=== PATIENT | male | born 1960 | race Caucasian/White ===

== ENCOUNTER 2023-08-11 16:57 | Outpatient (AMB) | payer OTHER, SELFPAY ==
[2023-08-11 17:00] VITALS: BP 136/80; PULSE 89; RESP 14; TEMP 36.6; O2SAT 97; BMI 34.0
--- NOTE | 2023-08-11 17:00 | A.OFFPC_ITS ---
Vital Signs 08/11/23 17:00 08/11/23 17:24 Height 6 ft Weight 250 lb 6 oz BMI 34.0 BP 136/80 110/60 Blood Pressure Location Rt brachial Rt brachial Position Sitting Sitting Respiration 14 Pulse 89 Pulse Source Pulse Oximeter Temp 97.9 F Temp Source Temporal Artery Scan Pulse Oximetry (%) 97 Oxygen Delivery Method Room Air Intake Visit Reasons: est care [facility] Justice Required: No Accompanied by: Self / Same As Patient Allergies cat dander Allergy (Intermediate, Verified 08/11/23 17:14) Itchy Eyes Medication List - Last Reconciled 08/11/23 by Linda Howe CNP albuterol sulfate 90 mcg/actuation 1 - 2 puffs inhalation Q4-6H PRN amlodipine 10 mg PO DAILY atorvastatin 80 mg PO DAILY bupropion HCl XL 150 mg PO QAM buspirone 15 mg PO BID gabapentin 600 mg PO TID lisinopril 40 mg PO DAILY meloxicam 7.5 mg PO DAILY metformin 1,000 mg PO BID metoprolol succinate ER 100 mg PO DAILY trazodone 50 mg PO BEDTIME Tobacco use date assessed: 08/11/23 Fall risk assessment: 1 Fall in past year Last assessed Fall Risk: 08/11/23 Dental Screening Dental Screen Date: 08/11/23 Did you have a dental visit in the last 12 months?: Yes Did you have a dental problem in the last 6 months where you did not have access to dental care?: No Was dental information given to patient?: Patient has dentist HPI HPI Comments History of Present Illness Details New patient Prior PCP:?[facility], Dr. Parkinson Last labs/office visit: 03/2023 Last CPE: Several years ago Acute issue(s): Hypertension -He is on amlodipine 10 mg daily, lisino pril 40 mg daily, and metoprolol succinate ER 100 mg daily Hyperlipidemia -He is on atorvastatin 80 mg daily Type 2 diabetes -He is on metformin 1000 mg twice daily COPD -He is on albuterol inhaler 1-2 puffs Q 4-6 H p.r.n. Anxiety/Depresion -He is on bupropion HDL XL 150 mg daily, buspirone 50 mg twice daily, and trazodone 50 mg daily at bedtime He reports controlled anxiety and depression symptoms on current treatment regimen. He is not currently followed and never been followed by a therapist or psychiatrist. No h/o psychiatric hospitalizations PMHx: HTN, DM2, HLD, COPD, anxiety, depression, CA, AAA (diagnosed sometime this year), and cervical stenosis SurgHx: Surgical repair of the colon s/p diverticulitis about 20 years ago FHx: Non SocHx: Smokes 10 cigarettes daily; has been smoking x 50 years. He does not drink alcohol. No recreational drugs He notes that he is followed by Precious Jordan, [facility] cardiology He states that he was followed by [facility] neuro spine for cervical stenosis. Surgery was recommended, however, he does not want surgery His notes that his last eye exam was about 2 years ago. He requests opthalmology referral He states that his last A1c was checked in March 2023 [facility] Medical History (Updated 08/11/23 @ 17:48 by Linda Howe [facility]) Diverticulitis of ascending colon Shoulder pain, left HTN (hypertension) Heart attack Diabetes Surgical History (Updated 08/11/23 @ 17:12 by Erendira Marx [facility]) No pertinent past surgical history Social History (Updated 05/21/21 @ 12:48 by Laura Garibay [facility]) Household Members: Spouse Housing: Apartment Alcohol intake: current Alcohol intake frequency: holidays/special occasions only Patient Tobacco Use Status: Current everyday Tobacco user Cigarette Packs Per Day: 0.5 Cigarettes Per Day: 10 Years Smoked: 50 e-Cigarette/Vaping Use: Never Used service: No Current occupational status: retired Cognitive needs: No Hearing needs: No Vision needs: No Questionnaire PHQ-9 Over the last 2 weeks, how often have you been bothered by any of the following problems? 1. Little interest or pleasure in doing things: not at all 2. Feeling down, depressed, or hopeless: not at all 3. Trouble falling or staying asleep, or sleeping too much: nearly every day 4. Feeling tired or having little energy: nearly every day 5. Poor appetite or overeating: not at all 6. Feeling bad about yourself - or that you are a failure or have let yourself or your family down: not at all 7. Trouble concentrating on things, such as reading the newspaper or watching television: not at all 8. Moving or speaking so slowly that other people could have noticed. Or the opposite - being so fidgety or restless that you have been moving around a lot more than usual: not at all 9. Thoughts that you would be better off or of hurting yourself in some way: not at all Total score: 6 Depression Screening Interpretation: Positive Depression Screening Follow-up: Existing condition and In treatment Depression Screening Done: Yes 93492 - PHQ-9 Billing: Yes Source: Developed by Drs. Rickey Gordillo, Claudia Lund, Mike Chambers and colleagues, with an educational diane from [employer] Thrive Questionnaire Date Thrive assessed: 08/11/23 I am a: Patient What is your living situation today?: I have a steady place to live Within the past 12 months, did the food you bought not last and you didn't have the money to get more?: Never true Within the past 12 months, did you worry whether your food would run out before you got money to buy more?: Never true Do you have trouble paying for medicines?: No Do you have trouble getting transportation to medical appointments?: No Do you have trouble paying your heating and electricity bill?: No Do you have trouble taking care of your child, family member or friend?: No Do you have trouble with day-to-day activities such as bathing, preparing meals, shopping, managing finances, etc.?: No Are you currently unemployed and looking for a job?: No Are you interested in more education?: No Please select the resources that you would like help with: None Currently or been in a relationship where the following occur: no concerns reported THRIVE Score: 0 AUDIT C Alcohol Use Questionnaire (AUDIT-C) 1. How often do you have a drink containing alcohol?: Never 3. How often do you have six or more drinks on one occasion?: Never Total Score: 0 KASSI-7 AMB Questionnaire KASSI-7 Date KASSI - 7 assessed: 08/11/23 Feeling nervous, anxious, or on edge: 3 = Nearly every day Not being able to stop or control worryin = Not at all Worrying too much about different things: 0 = Not at all Trouble relaxin = Not at all Being so restless that it is hard to sit still: 0 = Not at all Becoming easily annoyed or irritable: 0 = Not at all Feeling afraid as if something awful might happen: 0 = Not at all Total KASSI-7 score (0-4 normal; 5-9 mild; 10-14 moderate; 15-21 severe): 3 Source: Developed by Drs. Rickey Gordillo, Claudia Lund, Mike Chambers and colleagues, with an educational diane from [employer] KASSI-7 Assessment Billing KASSI-7 Assessment Tool: KASSI-7 Assessment 71157 Review of Systems Const Details: Const Denies chills, Denies fatigue, Denies fever(s), Denies headache(s) and Denies weakness ENT Denies dizziness and Denies headache(s) Card Denies chest pain, Denies lightheadedness, Denies dyspnea and Denies other (Palpitations) Resp Denies cough, Denies dyspnea, Denies wheezing and Denies other ( shortness of breath) GI Denies abdominal pain, Denies melena, Denies hematochezia, Denies change in bowel habits, Denies dyspepsia and Denies nausea Denies hematuria and Denies dysuria Musc Denies abnormal gait, Denies myalgias, Denies arthralgias, Denies numbness and Denies tingling Skin/Breast Denies rash, Denies unusual bruising and Denies wounds Neuro Denies abnormal gait, Denies dizziness, Denies headache(s), Denies memory loss, Denies numbness, Denies Sensory deficit (Neuro), Denies tingling and Denies weakness Psych Denies anxiety, Denies depression, Denies memory loss Endo Denies cold intolerance, Denies fatigue, Denies heat intolerance, Denies polydipsia and Denies polyuria Aller/Immun Denies wheezing Physical exam (Primary Care) Vital Signs: Last Vital Signs Temp 97.9 F 08/11/23 17:00 Pulse 89 08/11/23 17:00 Resp 14 08/11/23 17:00 BP 136/80 08/11/23 17:00 Pulse Ox 97 08/11/23 17:00 Oxygen Delivery Method Room Air 08/11/23 17:00 BMI result Body Mass Index 34.0 Tobacco/Smoking Status: Tobacco use Status Patient Tobacco Use Status Current everyday Tobacco 05/21/21 12:48 Depression Screening Interpretation: Positive Depression Screening Follow-up: Existing condition and In treatment Currently or been in a relationship where the following occur: no concerns reported Const Other: General: no acute distress and well developed Nutritional Appearance: well nourished Orientation/consciousness: patient oriented x3 [facility] Head: Yes normocephalic and Yes atraumatic Eyes General: appearance normal, both eyes and all related structures Pupils: Equal, round and reactive pupils present EOM: EOMs intact bilaterally Resp Effort & Inspection: normal respiratory effort Auscultation: clear to auscultation bilaterally Cardio Rate: regular rate Rhythm: regular rhythm Heart sounds: S1 normal heart sound present, S2 normal heart sound present, no gallops, no murmurs and no rubs GI Palpation (GI): No Abdominal aortic bruit present, Soft to palpation, nontender, No hepatosplenomegaly present and No Rebound tenderness present Auscultation: normal bowel sounds General: Yes no CVA tenderness Back/Spine/Pelvis Back: no CVA tenderness Cervical Spine: cervical ROM normal and No Cervical spine tenderness Thoracic/Lumbar Spine: thoraco-lumbar ROM normal, No pain with thoraco-lumbar ROM, No thoracic spinal tenderness and No lumbar spinal tenderness Extrem General: Yes normal to inspection, No edema and No calf tenderness Skin General: warm and dry. Normal skin color. Normal skin turgor Lesions: no lesions Rashes: no rashes Trauma: no lacerations or abrasions Wounds: no wounds Nails: normal Neuro General: patient oriented x3, gait normal and no focal neuro deficit Cranial nerves: Yes Equal, round and reactive pupils present Cognition (Neuro): normal cognition Gait exam (Neuro): Normal gait present Sensory Exam: No Sensory deficit (Neuro) Psych Appearance: grossly normal Affect: normal affect Attitude: cooperative Thought process: Normal thought process present Results AMB Hemoglobin A1c AMB Hemoglobin A1c 7.0 % Last Edit by ZEV Tamez on 08/11/23 17:2 2 Assessment and Plan Assessment & Plan (1) HTN (hypertension): Code(s): I10 - Essential (primary) hypertension Plan: Resting blood pressure is 110/60, within goal of less than 130/80 Continue current treatment regimen Low-sodium diet and routine exercise encouraged Follow-up in 1 month for hypertension, extended physical exam, labs review Return sooner with symptoms or concerns Verbalized understanding and agreed with treatment plan (2) Type 2 diabetes mellitus: Code(s): E11.9 - Type 2 diabetes mellitus without complications Plan: A1c today is 7.0%, slightly above goal of less than 7.0% Continue current treatment regimen ADA diet and routine exercise encouraged. Advised to limit carbs such as rice, bread, pasta, and rice Referred to Ophthalmology for diabetic eye exam Will recheck A1c in 3 months Verbalized understanding and agreed with treatment plan (3) Anxiety and depression: Code(s): F41.9 - Anxiety disorder, unspecified; F32.A - Depression, unspecified Plan: Controlled Continue to take buspirone and bupropion as prescribed Routine exercise encouraged Follow-up with worsening or new symptoms Verbalized understanding and agreed with treatment plan (4) Laboratory tests ordered as part of a complete physical exam (CPE): Code(s): Z00.00 - Encounter for general adult medical examination without abnormal findings Plan: Fasting labs ordered as in preparation of a complete physical exam. Advised to fast for at least 10 hours before getting labs drawn. May drink water Verbalized understanding and agreed with treatment plan. Orders: Orders AMB Hemoglobin A1c Today E11.9 - Type 2 diabetes mellitus without complications Comprehensive [place]. Panel Fast Today Z00.00 - Encounter for general adult medical examination without abnormal findings Lipid Panel Today Z00.00 - Encounter for general adult medical examination without abnormal findings UA CC w/rflx Micro + Cult Today Z00.00 - Encounter for general adult medical examination without abnormal findings PSA, Ultra Sensitive Today Z00.00 - Encounter for general adult medical examination without abnormal findings Microalbumin, Random (w Creat) Today E11.9 - Type 2 diabetes mellitus without complications Complete Blood Count Auto Diff Today Z00.00 - Encounter for general adult medical examination without abnormal findings TSH reflex Free T4 Today Z00.00 - Encounter for general adult medical examination without abnormal findings Referrals Ophthalmology Referral E11.9 - Type 2 diabetes mellitus without complications Coding Level of Care Code Est Pt Level 4 (99933) Complex EM visit Add On G2211 Diagnoses HTN (hypertension) I10 Type 2 diabetes mellitus E11.9 Anxiety and depression F41.9; F32.A Laboratory tests ordered as part of a complete physical exam (CPE) Z00.00 Additional Codes KASSI-7 Assessment Billing - KASSI-7 Assessment Tool: KASSI-7 Assessment [id number] ([id number])
[2023-08-11 17:24] VITALS: BP 110/60
== END 2023-08-11 17:51 | disposition home or self-care (01) ==
PROVIDERS: PCP Nurse Practitioner Family; Visit Provider Nurse Practitioner Family
DX: I10 Essential (primary) hypertension (principal); E11.9 Type 2 diabetes mellitus without complications; F41.9 Anxiety disorder, unspecified; F32.A Depression, unspecified
CPT/HCPCS: 83036; 99214; G2211

== ENCOUNTER 2023-08-19 10:44 | Outpatient (REF) | payer OTHER, SELFPAY ==
[2023-08-19 14:34] LABS: MANUAL DIFF FLAG NO
[2023-08-19 14:41] LABS: Appearance Urine Clear; Color Urine Yellow; Glucose Urine UA Negative (Negative); Leukocyte Esterase Urine Negative (Negative); Nitrite Urine Negative (Negative); PH 6.5 (5.0-9.0); UMIC TRIGGER UACC YES; Urine Blood Negative (Negative); Urine Ketones Negative (Negative); Urine Protein 30 (1+) mg/dL (Neg-Trace)
[2023-08-19 14:43] LABS: Basophils Percent Auto 0.2 % (0-2); Eosinophils Absolute Auto 0.4 X10*3/uL (0.0-0.4); Eosinophils Percent Auto 3.1 % (0-4); Hematocrit 49.4 % (42.0-52.0); Hemoglobin 16.6 g/dl (14.0-18.0); Imm Gran Abs Auto 0.05 X10*3/uL (0.00-0.03); Imm Gran Pct Auto 0.4 % (0.0-0.4); Lymphocytes Absolute Auto 2.2 X10*3/uL (1.2-4.9); Lymphocytes Percent Auto 17.3 % (20-40); Mean Corpuscular HGB Conc 33.6 g/dl (31.0-36.0); Mean Corpuscular Hemoglobin 30.5 pg (27.0-33.0); Mean Corpuscular Volume 90.6 fL (80.0-98.0); Mean Platelet Volume 9.4 fL (9.4-12.4); Monocytes Absolute Auto 0.7 X10*3/uL (0.1-1.2); Monocytes Percent Auto 5.6 % (2-11); Neutrophils Absolute Auto 9.3 x10*3/uL (2.0-8.3); Neutrophils Percent Auto 73.4 % (45-73); Platelet Count 271 X10*3/uL (160-400); Red Blood Count 5.45 X10*6/uL (4.60-5.80); Red Cell Distribution Width 12.9 % (11.0-16.0); White Blood Count 12.7 X10*3/uL (4.8-10.8)
[2023-08-19 14:46] LABS: Creatinine Urine 122.55 mg/dL
[2023-08-19 14:50] LABS: Bacteria Urine None Seen (None Seen); Hyaline Casts Urine 0-2 /LPF (0-2); RBC Urine 0-2 /HPF (0-2); Squamous Epithelial Cell Urine 0-2 /HPF (0-2); WBC Urine 0-5 /HPF (0-5)
[2023-08-19 15:24] LABS: Alanine Aminotransferase 22 U/L (0-40); Albumin Level 4.5 g/dL (3.5-5.0); Alkaline Phosphatase 82 U/L (39-117); Anion Gap 16 (12-20); Aspartate Amino Transferase 19 U/L (5-37); Bilirubin Total 0.9 mg/dL (0.0-1.0); Blood Urea Nitrogen 16 mg/dL (9-16); Carbon Dioxide 28 mmol/L (22-29); Chloride 104 mmol/L (96-108); Cholesterol 114 mg/dL (<200); Estimated Glomerular Filt Rate > 60; Glucose Fasting 80 mg/dL (60-99); HDL Cholesterol 33 mg/dL (>40); LDL Cholesterol Calculated 55 mg/dL (<100); Potassium 3.6 mmol/L (3.3-5.1); Sodium 144 mmol/L (135-145); Total Protein 7.4 g/dL (6.5-8.0); Triglycerides 133 mg/dL (<150)
[2023-08-19 15:52] LABS: TSH reflex Free T4 0.98 uIU/mL (0.32-4.0)
[2023-08-24 12:13] LABS: PSA, Ultra Sensitive 3.47 ng/mL
== END 2023-08-19 10:45 | disposition home or self-care (01) ==
LOC: HO.WFDLDS 10:44
PROVIDERS: Visit Provider Nurse Practitioner Family
DX: Z00.00 Encounter for general adult medical examination without abnormal findings (principal); Z12.5 Encounter for screening for malignant neoplasm of prostate; E11.9 Type 2 diabetes mellitus without complications
CPT/HCPCS: 36415; 80053; 80061; 81001; 82043; 82570; 84153; 84443; 85025

== ENCOUNTER 2023-09-11 10:36 | Outpatient (AMB) | payer OTHER, SELFPAY ==
--- NOTE | 2023-09-11 10:40 | MHC.PC.OV ---
Vital Signs 09/11/23 10:42 09/11/23 11:04 Height 6 ft Weight 250 lb BMI 33.9 BP 146/84 H 120/80 Blood Pressure Location Rt brachial Lt brachial Position Sitting Sitting Respiration 14 Pulse 69 Pulse Source Pulse Oximeter Temp 97.1 F Temp Source Temporal Artery Scan Pulse Oximetry (%) 98 Oxygen Delivery Method Room Air Intake Visit Reasons: CPE w F/U of labs [employer] Helper Required: No Accompanied by: Self / Same As Patient Allergies cat dander Allergy (Intermediate, Verified 09/11/23 10:58) Itchy Eyes Medication List - Last Reconciled 09/11/23 by Linda Howe CNP albuterol sulfate 90 mcg/actuation 1 - 2 puffs inhalation Q4-6H PRN amlodipine 10 mg PO DAILY atorvastatin 80 mg PO DAILY bupropion HCl XL 150 mg PO QAM buspirone 15 mg PO BID gabapentin 600 mg PO TID lisinopril 40 mg PO DAILY meloxicam 7.5 mg PO DAILY metformin 1,000 mg PO BID metoprolol succinate ER 100 mg PO DAILY trazodone 50 mg PO BEDTIME Tobacco use date assessed: 08/11/23 Fall risk assessment: 2 + Falls in past year Last assessed Fall Risk: 09/11/23 Dental Screening Dental Screen Date: 09/11/23 Did you have a dental visit in the last 12 months?: No Did you have a dental problem in the last 6 months where you did not have access to dental care?: No Was dental information given to patient?: Patient has dentist HPI HPI Comments History of Present Illness Details 63-year-old male presents for an extended physical exam He has history of hypertension, hyperlipidemia, type 2 diabetes, COPD, NE, anxiety, and depression He admits to taking his medications as prescribed without adverse reactions He notes that he generally eats healthy and sleep well. He has been exercising with his bicycle He denies acute symptoms at this time He was followed by Dr. Lang, [facility] yearly, since he has an NE in his 50s. He is not followed anymore since he is no longer with the practice due to discontinued health plan coverage Last colonoscopy was 7-8 years ago: benign polyps and diverticulitis, Had colectomy Last eye exam was on 09/02/2023: No retinopathy He has not seen a dentist in the past 1 year He smokes 8 cigarettes daily. He has been smoking for at least 50 years. Unsure of LDCT. He has been trying to quit smoking by not smoking a whole cigarette. He is willing to try Chantix; he smoked while on nicotine pach or gum reports multiple falls due to intermittent numbness of his entire RLE for the past 8 months. He was followed by multiple specialists at [facility] and received a cortisone injection without improvement. Physical therapy did not help. He was informed he has a pinched nerve to his LUE, no sciatica. He is willing to be referred to [facility] ortho He has never been vaccinated for shingles or pneumonia He states that he does not get the flu vaccine [facility] Medical History Diverticulitis of ascending colon Shoulder pain, left HTN (hypertension) Heart attack Diabetes Surgical History No pertinent past surgical history Social History Household Members: Spouse Housing: Apartment Alcohol intake: current Alcohol intake frequency: holidays/special occasions only Patient Tobacco Use Status: Current everyday Tobacco user Tobacco use type: Cigarette Cigarette Packs Per Day: 0.5 Cigarettes Per Day: 8 Years Smoked: 50 e-Cigarette/Vaping Use: Never Used service: No Current occupational status: retired Cognitive needs: No Hearing needs: No Vision needs: No Questionnaire PHQ-9 Over the last 2 weeks, how often have you been bothered by any of the following problems? 1. Little interest or pleasure in doing things: not at all 2. Feeling down, depressed, or hopeless: not at all 3. Trouble falling or staying asleep, or sleeping too much: more than half the days 4. Feeling tired or having little energy: not at all 5. Poor appetite or overeating: not at all 6. Feeling bad about yourself - or that you are a failure or have let yourself or your family down: not at all 7. Trouble concentrating on things, such as reading the newspaper or watching television: not at all 8. Moving or speaking so slowly that other people could have noticed. Or the opposite - being so fidgety or restless that you have been moving around a lot more than usual: not at all 9. Thoughts that you would be better off or of hurting yourself in some way: not at all Total score: 2 Depression Screening Interpretation: Negative Depression Screening Done: Yes 32851 - PHQ-9 Billing: Yes Source: Developed by Drs. Rickey Gordillo, Claudia Lund, Mike Chambers and colleagues, with an educational diane from [employer]. Thrive Questionnaire Date Thrive assessed: 09/11/23 I am a: Patient What is your living situation today?: I have a steady place to live Within the past 12 months, did the food you bought not last and you didn't have the money to get more?: Never true Within the past 12 months, did you worry whether your food would run out before you got money to buy more?: Never true Do you have trouble paying for medicines?: No Do you have trouble getting transportation to medical appointments?: No Do you have trouble paying your heating and electricity bill?: No Do you have trouble taking care of your child, family member or friend?: No Do you have trouble with day-to-day activities such as bathing, preparing meals, shopping, managing finances, etc.?: No Are you currently unemployed and looking for a job?: No Are you interested in more education?: No Please select the resources that you would like help with: None Currently or been in a relationship where the following occur: no concerns reported THRIVE Score: 0 AUDIT C Alcohol Use Questionnaire (AUDIT-C) 1. How often do you have a drink containing alcohol?: Never 3. How often do you have six or more drinks on one occasion?: Never Total Score: 0 KASSI-7 AMB Questionnaire KASSI-7 Date KASSI - 7 assessed: 09/11/23 Feeling nervous, anxious, or on edge: 1 = Several days Not being able to stop or control worryin = Not at all Worrying too much about different things: 0 = Not at all Trouble relaxin = Several days Being so restless that it is hard to sit still: 0 = Not at all Becoming easily annoyed or irritable: 0 = Not at all Feeling afraid as if something awful might happen: 0 = Not at all Total KASSI-7 score (0-4 normal; 5-9 mild; 10-14 moderate; 15-21 severe): 2 Source: Developed by Drs. Rickey Gordillo, Claudia Lund, Mike Chambers and colleagues, with an educational diane from [employer]. KASSI-7 Assessment Billing KASSI-7 Assessment Tool: KASSI-7 Assessment 34865 Review of Systems Const Details: Denies chills, Denies fatigue, Denies fever(s), Denies headache(s) and Denies weakness HEENT Denies change in vision, Denies dizziness, Denies headache(s), Denies hearing loss, Denies nasal congestion, Denies sinus pain, Denies sinus pressure and Denies sore throat Card Denies chest pain, Denies lightheadedness, Denies dyspnea and Denies other (palpitations) Resp Denies cough, Denies dyspnea and Denies wheezing GI Denies abdominal pain, Denies melena, Denies hematochezia, Denies change in bowel habits, Denies dyspepsia and Denies nausea Denies hematuria and Denies dysuria Musc Denies abnormal gait, Denies myalgias, Denies arthralgias, Denies numbness and Denies tingling Skin/Breast Denies rash, Denies unusual bruising and Denies wounds Neuro Denies abnormal gait, Denies dizziness, Denies headache(s), Denies memory loss, Denies numbness, Denies Sensory deficit (Neuro), Denies tingling and Denies weakness Psych Denies anxiety, Denies depression and Denies memory loss Endo Denies cold intolerance, Denies fatigue, Denies heat intolerance, Denies polydipsia and Denies polyuria Anthony/Lymph Denies easy bleeding and Denies easy bruising Aller/Immun Denies wheezing Physical exam (Primary Care) Vital Signs: Last Vital Signs Temp 97.1 F 09/11/23 10:42 Pulse 69 09/11/23 10:42 Resp 14 09/11/23 10:42 BP 146/84 H 09/11/23 10:42 Pulse Ox 98 09/11/23 10:42 Oxygen Delivery Method Room Air 09/11/23 10:42 BMI result Body Mass Index 33.9 Tobacco/Smoking Status: Tobacco use Status Tobacco use date assessed 08/11/23 09/11/23 10:41 Patient Tobacco Use Status Current everyday Tobacco 09/11/23 10:41 Tobacco use type Cigarette 09/11/23 10:48 e-Cigarette/Vaping Use Never Used 09/11/23 10:41 PHQ-9: PHQ-9 Score PHQ-9: Total score 2 09/11/23 10:48 Depression Screening Interpretation: Negative Thrive Assessment: Date of Thrive Assessment Date Thrive assessed 09/11/23 09/11/23 10:48 Currently or been in a relationship where the following occur: no concerns reported Const Other: General: no acute distress, well developed, alert and awake Nutritional Appearance: well nourished Orientation/consciousness: patient oriented x3 HENMT Head: Yes normocephalic and Yes atraumatic Ears: hearing grossly normal bilaterally and TM's normal bilaterally General nose exam: Normal external nose present and Normal nares present Mouth: Normal oral and palatal mucosa present and moist mucous membranes Teeth and gingiva: dentition normal Throat: Yes oropharynx normal Eyes Pupils: Equal, round and reactive pupils present and Pupil accommodation reflex normal EOM: EOMs intact bilaterally Neck Neck: Yes normal visual inspection, Yes no lymphadenopathy and Yes trachea midline Thyroid: Thyroid normal Carotids: no bruits Lymphatic: no lymphadenopathy noted Chest Chest palpation & inspection: normal inspection of the chest Resp Effort & Inspection: normal respiratory effort Auscultation: clear to auscultation bilaterally Cardio Rate: regular rate Rhythm: regular rhythm Heart sounds: S1 normal heart sound present, S2 normal heart sound present, no gallops, no murmurs and no rubs Bruits: no abdominal aortic bruits and no carotid bruits GI Palpation (GI): No Abdominal aortic bruit present, Soft to palpation, nontender, No hepatosplenomegaly present and No Rebound tenderness present Auscultation: normal bowel sounds General: Yes no CVA tenderness Back/Spine/Pelvis Back: no CVA tenderness Cervical Spine: cervical ROM normal and No Cervical spine tenderness Thoracic/Lumbar Spine: thoraco-lumbar ROM normal, No pain with thoraco-lumbar ROM, No thoracic spinal tenderness and No lumbar spinal tenderness Skin General: warm and dry. Normal skin color. Normal skin turgor Lesions: Dark brown, round lesions to his back Rashes: no rashes Trauma: no lacerations or abrasions Wounds: no wounds Nails: normal Neuro General: patient oriented x3, gait normal and CN's II-XI intact bilaterally Cranial nerves: Yes Equal, round and reactive pupils present Cognition (Neuro): normal cognition Gait exam (Neuro): Normal gait present Motor exam (neuro): 5/5 motor strength present throughout Sensory Exam: No Sensory deficit (Neuro) Deep tendon reflexes (DTR's): Right patellar reflex intensity grade: 2+ and Left patellar reflex intensity grade: 2+ Extrem General: Yes normal to inspection, No edema and No calf tenderness Psych Appearance: grossly normal Affect: normal affect Attitude: cooperative Thought process: Normal thought process present Assessment and Plan Assessment & Plan (1) Normal physical examination, routine: Code(s): Z00.00 - Encounter for general adult medical examination without abnormal findings Plan: No significant physical restrictions or limitations noted Continue current treatment regimen Healthy diet and routine exercise encouraged Advised to establish care with a dentist for routine dental care Follow-up in 2 months for diabetes and hypertension or return sooner with symptoms or concerns Verbalized understanding and agreed with treatment plan (2) Low HDL (under 40): Code(s): E78.6 - Lipoprotein deficiency Plan: Recent lab results reviewed with the patient, unremarkable findings except for slightly low HDL and elevated microalbumin/creatinine ratio, 33 and 75.0 respectively Advised to limit foods high in saturated fat and avoid foods high in trans fat Routine exercise and adequate hydration encouraged Verbalized understanding and agreed with the plan (3) Microalbuminuria: Code(s): R80.9 - Proteinuria, unspecified Plan: As above (4) HTN (hypertension): Code(s): I10 - Essential (primary) hypertension Plan: Resting blood pressure is 120/80, slightly above goal of less than 130/80 Continue current treatment regimen Low-sodium diet encouraged Follow-up in 2 months Verbalized understanding and agreed with the plan (5) Anxiety and depression: Code(s): F41.9 - Anxiety disorder, unspecified; F32.A - Depression, unspecified Plan: Controlled Continue current treatment regimen (6) Numbness of left lower extremity: Code(s): R20.0 - Anesthesia of skin Plan: Intermittent left lower extremity numbness for the past 8 months; refractory to cortisone injection and physical therapy Referred to [facility] orthopedics Will increase gabapentin to 800 mg 3 times daily Follow-up with worsening or new symptoms Verbalized understanding and agreed with treatment plan (7) Ready to quit smoking: Code(s): F17.200 - Nicotine dependence, unspecified, uncomplicated Plan: He smokes 8 cigarettes daily. He has been smoking for at least 50 years. Unsure whether he has had LDCT. He has been trying to quit smoking by not smoking a whole cigarette. He is willing to try Chantix; he smoked while on nicotine pach or gum Chantix ordered. Advised to take as prescribed Follow-up with symptoms or concerns Verbalized understanding and agreed with treatment plan (8) Obesity (BMI 30-39.9): Code(s): E66.9 - Obesity, unspecified Plan: He currently weighs 250 lb, BMI is 33.9 Declines referral to dietitian/nutrition or weight management and notes that he plans to continue to do physical exercise by riding his bike Healthy diet and routine exercise encouraged You may inform his PCP if he changes his mind on referral to dietitian/household cook or weight management Follow-up with symptoms or concerns Verbalized understanding and agreed with treatment plan (9) Vaccine counseling: Code(s): Z71.85 - Encounter for immunization safety counseling Plan: He has never been vaccinated for shingles or pneumonia Instructed on importance of vaccination and encouraged to get vaccinated for shingles and pneumonia. He may request the vaccines from his local pharmacy Verbalized understanding and agreed with the plan (10) Skin lesions: Code(s): L98.9 - Disorder of the skin and subcutaneous tissue, unspecified Plan: Dark brown, round lesions to his back Referred to dermatology (11) Colon cancer screening: Code(s): Z12.11 - Encounter for screening for malignant neoplasm of colon Plan: Last colonoscopy was 7-8 years ago: benign polyps and diverticulitis, Had colectomy Referred to [facility] gastroenterology for a colonoscopy (12) History of NE (myocardial infarction): Code(s): I25.2 - Old myocardial infarction Plan: He was followed by Dr. Lang, [facility] yearly, since he has an NE in his 50s. He is not followed anymore since he is no longer with the practice due to discontinued health plan coverage Referred to [facility] cardiology Orders: Orders CT lung screening Today F17.200 - Nicotine dependence, unspecified, uncomplicated Referrals Orthopedics Referral R20.0 - Anesthesia of skin Gastroenterology Referral Z12.11 - Encounter for screening for malignant neoplasm of colon Dermatology Referral L98.9 - Disorder of the skin and subcutaneous tissue, unspecified Cardiology Referral I25.2 - Old myocardial infarction Medications: New gabapentin 800 mg PO TID 30 days 90 tabs 3RF varenicline (Chantix Starting Month Box) PO PER PKG DIR 53 ea 0RF Coding Level of Care Code Est Pt Level 4 (71366) Est Pt Prev Care >65y(91451) Diagnoses Normal physical examination, routine Z00.00 Low HDL (under 40) E78.6 Microalbuminuria R80.9 HTN (hypertension) I10 Anxiety and depression F41.9; F32.A Numbness of left lower extremity R20.0 Ready to quit smoking F17.200 Obesity (BMI 30-39.9) E66.9 Vaccine counseling Z71.85 Skin lesions L98.9 Colon cancer screening Z12.11 History of NE (myocardial infarction) I25.2 Additional Codes KASSI-7 Assessment Billing - KASSI-7 Assessment Tool: KASSI-7 Assessment 48514 ([id number])
[2023-09-11 10:42] VITALS: BP 146/84; PULSE 69; RESP 14; TEMP 36.2; O2SAT 98; BMI 33.9
[2023-09-11 11:04] VITALS: BP 120/80
== END 2023-09-11 11:31 | disposition home or self-care (01) ==
PROVIDERS: PCP Nurse Practitioner Family; Visit Provider Nurse Practitioner Family
DX: I10 Essential (primary) hypertension (principal); E78.6 Lipoprotein deficiency; R80.9 Proteinuria, unspecified; F41.9 Anxiety disorder, unspecified; F32.A Depression, unspecified; R20.0 Anesthesia of skin; F17.200 Nicotine dependence, unspecified, uncomplicated; E66.9 Obesity, unspecified; Z71.85 Encounter for immunization safety counseling; L98.9 Disorder of the skin and subcutaneous tissue, unspecified; I25.2 Old myocardial infarction
CPT/HCPCS: 99214; 99397

== ENCOUNTER 2023-10-14 10:09 | Outpatient (AMB) | payer OTHER, SELFPAY ==
[2023-10-14 11:05] VITALS: BMI 33.9
--- NOTE | 2023-10-14 11:05 | MHC.OFFVIS ---
Vital Signs 10/14/23 11:05 Height 6 ft Weight 250 lb BMI 33.9 Intake Visit Reasons: [employer]-pinched nerve in lower back/ left leg Intake Note: Slava is a 63 year old male who presents as a new patient with complaints of lower back and left leg pain. Patient reports ongoing pain is his lower back for about a year. He states that he had a fall at his doctors office a couple months ago. Patient tried and failed PT and injections with no relief. Patient reports that the pain comes in different times and unsure when an episode would start. Allergies cat dander Allergy (Intermediate, Verified 10/14/23 11:15) Itchy Eyes Medication List - Last Reconciled 10/14/23 by Georgina Watters MD albuterol sulfate 90 mcg/actuation 1 - 2 puffs inhalation Q4-6H PRN amlodipine 10 mg PO DAILY atorvastatin 80 mg PO DAILY bupropion HCl XL 150 mg PO QAM buspirone 15 mg PO BID gabapentin 800 mg PO TID 30 days lisinopril 40 mg PO DAILY meloxicam 7.5 mg PO DAILY metformin 1,000 mg PO BID metoprolol succinate ER 100 mg PO DAILY trazodone 50 mg PO BEDTIME varenicline (Chantix Starting Month Box) PO PER PKG DIR HPI Comments Details: History of hypertension, hyperlipidemia, type 2 diabetes, COPD, [place], anxiety, and depression, reported multiple falls. Lower back pain, goes to left leg. Says whole left leg shakes , would shoot across, then cause him to fall. Last fall yesterday at home. Started since December, he had fallen for the first time in his doctor's open. He noted that left turned inwards and started shaking. No numbness. No bowel/bladder changes. No foot drop or weakness per se. Full work up done at [facility] including MRI and CT scans. EMG done reported L5-S1 right chronic mild radiculopathy. Seen by neurosurgery Dr. Cramer who recommended surgery but insurance has changed and now out of network. Previous injections done by pain management at [facility], without lasting relief. Finished courses of PT. Also mentions that he had neck issues in the past 1 or 2 years, also seen by Dr. Lopez at that time, also recommended to have surgery. [facility] Medical History (Updated 10/14/23 @ 11:27 by Georgina Watters MD) Lumbar spondylosis Lumbar radiculopathy Diverticulitis of ascending colon Shoulder pain, left HTN (hypertension) Heart attack Diabetes Surgical History (Updated 09/11/23 @ 11:36 by Linda Howe CNP) No pertinent past surgical history Social History Household Members: Spouse Housing: Apartment Alcohol intake: current Alcohol intake frequency: holidays/special occasions only Patient Tobacco Use Status: Current everyday Tobacco user Tobacco use type: Cigarette Cigarette Packs Per Day: 0.5 Cigarettes Per Day: 8 Years Smoked: 50 e-Cigarette/Vaping Use: Never Used service: No Current occupational status: retired Cognitive needs: No Hearing needs: No Vision needs: No Review of Systems Const All systems reviewed & are unremarkable except as noted in HPI and below Physical Exam Vital Signs: BMI result Body Mass Index 33.9 Constitutional: Patient appears to be in no acute distress, well nourished and well developed. Patient was appropriately conversant and oriented. Good historian. MSK: No specific abnormalities found on inspection of the spine and all extremities. Mild tenderness in left paraspinals lumbar. No tenderness in SI or GT. Lumbar ROM was full. Bilateral hip, knee and ankle ROM WNL. No ligamentous laxity or crepitance. No increased effusion. Straight-leg raising test negative. FABERE test negative. No focal weakness seen though gait is unsteady. Neurological: No hyperflexia. Bautista?s negative bilaterally. Babinski was down going bilaterally. Clonus was negative. Gait is non-antalgic, unsteady. Results Reviewed Results Reviewed: I reviewed records from the following: EMG done at [facility] Pain management notes that [facility] Previous PCP notes Neurosurgery notes Lumbar x-rays done in the office today showed significant decreased disc space L4-5 and L5-S1. Assessment & Plan Assessment & Plan (1) Lumbar spondylosis: Code(s): M47.816 - Spondylosis without myelopathy or radiculopathy, lumbar region Category: Medical (2) Lumbar radiculopathy: Code(s): M54.16 - Radiculopathy, lumbar region Category: Medical Plan Patient describes symptoms that could be consistent with myelopathy (shaking leg, falling) though exam today is quite normal (reflexes symmetric, no spasticity, no clonus, no focal weakness). He has undergone work up at [facility] including EMG that reported mild chronic L5-S1. MRI done but I don't have it now, will obtain. He was previously seen by Neurosurgery who recommended surgery. Referring to Dr. Kerr to evaluate for surgery, already seen by Dr. Cramer who is not under network anymore. MRI and CT were done at [facility], advised patient to bring CD. Assessment and plan discussed with patient, and patient was agreeable. All questions were answered thoroughly. Total of 45 minutes spent today including chart review, results review, history taking, physical examination, discussion of assessment and plan, and coordination of care. Georgina Watetrs MD, ALEXANDER Board Certified, [place] [employer] and Rehabilitation (ABPMR) Board Certified, [place] [employer] Electro[employer] (ABEM) Orders: Orders XR lumbar spine 2-3V Today M54.9 - Dorsalgia, unspecified Referrals Neurosurgery Referral M47.816 - Spondylosis without myelopathy or radiculopathy, lumbar region, M54.16 - Radiculopathy, lumbar region Coding Level of Care Code New Pt Level 4 (27484) Diagnoses Lumbar spondylosis M47.816 Lumbar radiculopathy M54.16
== END 2023-10-14 11:42 | disposition home or self-care (01) ==
PROVIDERS: PCP Nurse Practitioner Family; Visit Provider Physical Medicine & Rehabilitation
DX: M47.816 Spondylosis without myelopathy or radiculopathy, lumbar region (principal); M54.16 Radiculopathy, lumbar region
CPT/HCPCS: 99204

== ENCOUNTER 2023-10-14 10:20 | Outpatient (REF) | payer OTHER, SELFPAY ==
--- NOTE | ~2023-10-14 | XR_ITS ---
EXAMINATION: XR LUMBOSACRAL SPINE CLINICAL INFORMATION: Back pain. COMPARISON: None available. TECHNIQUE: 2 views of the lumbosacral spine. FINDINGS: Mild dextroscoliosis of the lumbar spine. Facet arthritis in the [id number] lumbar spine. Atherosclerotic aortoiliac calcifications. Advanced multilevel degenerative changes in the lumbar spine with multilevel loss of disc space height severe at L4-L5 and L5-S1. Grade 1 retrolisthesis of L2 on L3. XR/XR lumbar spine 2-3V IMPRESSION: Advanced multilevel degenerative changes in the lumbar spine most severe at L4-L5 and L5-S1.
== END 2023-10-14 10:21 | disposition home or self-care (01) ==
LOC: HO.HOSX 10:20
PROVIDERS: Visit Provider Physical Medicine & Rehabilitation
DX: M47.26 Other spondylosis with radiculopathy, lumbar region (principal); Z91.81 History of falling
CPT/HCPCS: 72100; 99202

== ENCOUNTER 2023-10-27 11:12 | Outpatient (AMB) | payer OTHER, SELFPAY ==
--- NOTE | 2023-10-27 11:28 | MHC.PC.OV ---
Vital Signs 10/27/23 11:33 Weight 256 lb 4 oz BP 142/92 H Blood Pressure Location Lt brachial Position Sitting Respiration 16 Pulse 70 Pulse Source Pulse Oximeter Temp 97.7 F Temp Source Temporal Artery Scan Pulse Oximetry (%) 94 Oxygen Delivery Method Room Air Intake Visit Reasons: 2 mos DM, HTN Intake Note: patient here for follow up. Creative Coordinator Required: No Allergies cat dander Allergy (Intermediate, Verified 10/27/23 11:59) Itchy Eyes Medication List - Last Reconciled 10/27/23 by Linda Howe CNP albuterol sulfate 90 mcg/actuation 1 - 2 puffs inhalation Q4-6H PRN amlodipine 10 mg PO DAILY atorvastatin 80 mg PO DAILY bupropion HCl XL 150 mg PO QAM buspirone 15 mg PO BID gabapentin 800 mg PO TID 30 days lisinopril 40 mg PO DAILY meloxicam 7.5 mg PO DAILY metformin 1,000 mg PO BID metoprolol succinate ER 100 mg PO DAILY trazodone 50 mg PO BEDTIME varenicline (Chantix Starting Month Box) PO PER PKG DIR Tobacco use date assessed: 08/11/23 Fall risk assessment: 1 Fall in past year Last assessed Fall Risk: 10/27/23 Dental Screening Dental Screen Date: 10/27/23 Did you have a dental visit in the last 12 months?: No Did you have a dental problem in the last 6 months where you did not have access to dental care?: No Was dental information given to patient?: No (needs to find one because of new insurance) HPI HPI Comments History of Present Illness Details 62-year-old male presents for hypertension and diabetes follow-up He admits to taking his medications as prescribed without adverse reactions He admits to limiting salt in his diet He offers no complaints and denies acute symptoms at this time [facility] Medical History (Updated 10/14/23 @ 11:27 by Georgina Watters MD) Lumbar spondylosis Lumbar radiculopathy Diverticulitis of ascending colon Shoulder pain, left HTN (hypertension) Heart attack Diabetes Surgical History (Updated 09/11/23 @ 11:36 by Linda Howe CNP) No pertinent past surgical history Social History Household Members: Spouse Housing: Apartment Alcohol intake: current Alcohol intake frequency: holidays/special occasions only Patient Tobacco Use Status: Current everyday Tobacco user Tobacco use type: Cigarette Cigarette Packs Per Day: 0.5 Cigarettes Per Day: 8 Years Smoked: 50 e-Cigarette/Vaping Use: Never Used service: No Current occupational status: retired Cognitive needs: No Hearing needs: No Vision needs: No Questionnaire PHQ-9 Over the last 2 weeks, how often have you been bothered by any of the following problems? 1. Little interest or pleasure in doing things: not at all 2. Feeling down, depressed, or hopeless: not at all 3. Trouble falling or staying asleep, or sleeping too much: several days 4. Feeling tired or having little energy: not at all 5. Poor appetite or overeating: not at all 6. Feeling bad about yourself - or that you are a failure or have let yourself or your family down: not at all 7. Trouble concentrating on things, such as reading the newspaper or watching television: not at all 8. Moving or speaking so slowly that other people could have noticed. Or the opposite - being so fidgety or restless that you have been moving around a lot more than usual: not at all 9. Thoughts that you would be better off or of hurting yourself in some way: not at all Total score: 1 [place]: [place] [address] - PHQ-9 Billing: Yes Source: Developed by Drs. Rickey Gordillo, Claudia Lund, Mike Chambers and colleagues, with an educational diane from [employer]. Thrive Questionnaire Date Thrive assessed: 09/11/23 KASSI-7 AMB Questionnaire KASSI-7 Date KASSI - 7 assessed: 10/27/23 Feeling nervous, anxious, or on edge: 0 = Not at all Not being able to stop or control worryin = Not at all Worrying too much about different things: 0 = Not at all Trouble relaxin = Not at all Being so restless that it is hard to sit still: 0 = Not at all Becoming easily annoyed or irritable: 0 = Not at all Feeling afraid as if something awful might happen: 0 = Not at all Total KASSI-7 score (0-4 normal; 5-9 mild; 10-14 moderate; 15-21 severe): 0 Source: Developed by Drs. Rickey Gordillo, Claudia Lund, Mike Chambers and colleagues, with an educational diane from [employer]. KASSI-7 Assessment Billing KASSI-7 Assessment Tool: KASSI-7 Assessment 65066 Review of Systems Const Details: Const Denies chills, Denies fatigue, Denies fever(s), Denies headache(s) and Denies weakness ENT Denies dizziness and Denies headache(s) Card Denies chest pain, Denies lightheadedness, Denies dyspnea and Denies other (Palpitations) Resp Denies cough, Denies dyspnea, Denies wheezing and Denies other ( shortness of breath) GI Denies abdominal pain, Denies melena, Denies hematochezia, Denies change in bowel habits, Denies dyspepsia and Denies nausea Denies hematuria and Denies dysuria Musc Denies abnormal gait, Denies myalgias, Denies arthralgias, Denies numbness and Denies tingling Skin/Breast Denies rash, Denies unusual bruising and Denies wounds Neuro Denies abnormal gait, Denies dizziness, Denies headache(s), Denies memory loss, Denies numbness, Denies Sensory deficit (Neuro), Denies tingling and Denies weakness Psych Denies anxiety, Denies depression, Denies memory loss Endo Denies cold intolerance, Denies fatigue, Denies heat intolerance, Denies polydipsia and Denies polyuria Aller/Immun Denies wheezing Physical exam (Primary Care) Vital Signs: Last Vital Signs Temp 97.7 F 10/27/23 11:33 Pulse 70 10/27/23 11:33 Resp 16 10/27/23 11:33 BP 142/92 H 10/27/23 11:33 Pulse Ox 94 10/27/23 11:33 Oxygen Delivery Method Room Air 10/27/23 11:33 Tobacco/Smoking Status: Tobacco use Status Tobacco use date assessed 08/11/23 10/27/23 11:30 Patient Tobacco Use Status Current everyday Tobacco 10/27/23 11:30 Tobacco use type Cigarette 10/27/23 11:30 e-Cigarette/Vaping Use Never Used 10/27/23 11:30 Thrive Assessment: Date of Thrive Assessment Date Thrive assessed 09/11/23 10/27/23 11:30 Const Other: General: no acute distress and well developed Nutritional Appearance: well nourished Orientation/consciousness: patient oriented x3 [facility] Head: Yes normocephalic and Yes atraumatic Eyes General: appearance normal, both eyes and all related structures Pupils: Equal, round and reactive pupils present EOM: EOMs intact bilaterally Resp Effort & Inspection: normal respiratory effort Auscultation: clear to auscultation bilaterally Cardio Rate: regular rate Rhythm: regular rhythm Heart sounds: S1 normal heart sound present, S2 normal heart sound present, no gallops, no murmurs and no rubs GI Palpation (GI): No Abdominal aortic bruit present, Soft to palpation, nontender, No hepatosplenomegaly present and No Rebound tenderness present Auscultation: normal bowel sounds General: Yes no CVA tenderness Back/Spine/Pelvis Back: no CVA tenderness Cervical Spine: cervical ROM normal and No Cervical spine tenderness Thoracic/Lumbar Spine: thoraco-lumbar ROM normal, No pain with thoraco-lumbar ROM, No thoracic spinal tenderness and No lumbar spinal tenderness Extrem General: Yes normal to inspection, No edema and No calf tenderness Skin General: warm and dry. Normal skin color. Normal skin turgor Lesions: no lesions Rashes: no rashes Trauma: no lacerations or abrasions Wounds: no wounds Nails: normal Neuro General: patient oriented x3, gait normal and no focal neuro deficit Cranial nerves: Yes Equal, round and reactive pupils present Cognition (Neuro): normal cognition Gait exam (Neuro): Normal gait present Sensory Exam: No Sensory deficit (Neuro) Psych Appearance: grossly normal Affect: normal affect Attitude: cooperative Thought process: Normal thought process present Assessment and Plan Assessment & Plan (1) HTN (hypertension): Code(s): I10 - Essential (primary) hypertension Plan: Blood pressure today is 142/92, above goal of less than 130/80 Will start hydrochlorothiazide 12.5 mg daily. Advised to take as prescribed. Instructed on the risks, benefits, and potential adverse reactions of the medication Continue to take amlodipine, lisinopril, and metoprolol as prescribed Low-sodium diet encouraged Follow-up for nurse visit in 1 week for blood pressure check and with PCP in 1 month for hypertension and diabetes Return sooner with symptoms or concerns Verbalized understanding and agreed with the treatment plan Medications: New hydrochlorothiazide 12.5 mg PO DAILY 30 days 30 tabs 3RF Coding Level of Care Code Est Pt Level 4 (11971) Diagnoses HTN (hypertension) I10 Additional Codes KASSI-7 Assessment Billing - KASSI-7 Assessment Tool: KASSI-7 Assessment 61097 ([id number])
[2023-10-27 11:33] VITALS: BP 142/92; PULSE 70; RESP 16; TEMP 36.5; O2SAT 94
== END 2023-10-27 12:14 | disposition home or self-care (01) ==
PROVIDERS: PCP Nurse Practitioner Family; Visit Provider Nurse Practitioner Family
DX: I10 Essential (primary) hypertension (principal)
CPT/HCPCS: 99214

== ENCOUNTER → 2023-11-18 11:11 | Outpatient (AMB) | payer OTHER, SELFPAY ==
--- NOTE | 2023-11-18 12:04 | MHC.OFFWIV ---
Intake Vital Signs 11/18/23 12:07 Height 6 ft BMI Reason not done Patient refused/unable BP 100/60 Blood Pressure Location Lt brachial Position Sitting BP not taken reason Patient Refused Respiration 16 Pulse 78 Pulse Source Pulse Oximeter Temp 98.3 F Temp Source Tympanic Pulse Oximetry (%) 97 Oxygen Delivery Method Room Air Intake Visit Reasons: Dizziness and blood in stool Intake Note: dizziness and blood in stool Patient Tobacco Use Status: Current everyday Tobacco user Allergies cat dander Allergy (Intermediate, Verified 11/18/23 12:04) Itchy Eyes Medication List - Last Reconciled 11/18/23 by Toribio Muro MD albuterol sulfate 90 mcg/actuation 1 - 2 puffs inhalation Q4-6H PRN amlodipine 10 mg PO DAILY atorvastatin 80 mg PO DAILY bupropion HCl XL 150 mg PO QAM buspirone 15 mg PO BID gabapentin 800 mg PO TID 30 days hydrochlorothiazide 12.5 mg PO DAILY 30 days lisinopril 40 mg PO DAILY meloxicam 7.5 mg PO DAILY metformin 1,000 mg PO BID metoprolol succinate ER 100 mg PO DAILY trazodone 50 mg PO BEDTIME varenicline (Chantix Starting Month Box) PO PER PKG DIR HPI Dizziness and blood in stool HPI Details 63 y/o male presents today with complaints of dizziness/blood in stool. Blood pressure today 100/60, 78p. He is on lisinopril 40mg, HCTZ 12.5mg daily, amlodipine 10mg daily. Pt reports darkened stools x2 weeks. He reported an episode of retching about 10 days ago. Denies abd. pain/straining. [facility] Medical History (Updated 11/18/23 @ 12:53 by Toribio Muro MD) Lumbar spondylosis Lumbar radiculopathy Diverticulitis of ascending colon Shoulder pain, left HTN (hypertension) Heart attack Diabetes Surgical History (Updated 09/11/23 @ 11:36 by Linda Howe CNP) No pertinent past surgical history Social History Household Members: Spouse Housing: Apartment Alcohol intake: current Alcohol intake frequency: holidays/special occasions only Patient Tobacco Use Status: Current everyday Tobacco user Tobacco use type: Cigarette Cigarette Packs Per Day: 0.5 Cigarettes Per Day: 8 Years Smoked: 50 e-Cigarette/Vaping Use: Never Used service: No Current occupational status: retired Cognitive needs: No Hearing needs: No Vision needs: No Review of Systems Const Denies chills, Denies fatigue, Denies fever(s), Denies headache(s) and Denies weakness ENT Denies dizziness and Denies headache(s) Card Denies dyspnea Resp Denies cough, Denies dyspnea, Denies wheezing and Denies other (shortness of breath) Musc Denies numbness and Denies tingling Neuro Details: dizziness Denies dizziness, Denies headache(s), Denies numbness, Denies tingling and Denies weakness Psych Denies anxiety and Denies depression Endo Denies fatigue Aller/Immun Denies wheezing Physical Exam Vital Signs: Last Vital Signs Temp 98.3 F 11/18/23 12:07 Pulse 78 11/18/23 12:07 Resp 16 11/18/23 12:07 BP 100/60 11/18/23 12:07 Pulse Ox 97 11/18/23 12:07 Oxygen Delivery Method Room Air 11/18/23 12:07 Const Other: Looks pale General: well developed; No acute distress Nutritional Appearance: well nourished Orientation/consciousness: patient oriented x3 HEENT Head: Yes normocephalic and Yes atraumatic Eyes General: appearance normal, both eyes and all related structures Pupils: Equal, round and reactive pupils present EOM: EOMs intact bilaterally Resp Effort & Inspection: normal respiratory effort Auscultation: clear to auscultation bilaterally Cardio Rate: regular rate Rhythm: regular rhythm Heart sounds: S1 normal heart sound present, S2 normal heart sound present, no gallops, no murmurs and no rubs Neuro General: patient oriented x3 and gait normal Cranial nerves: Yes Equal, round and reactive pupils present Psych Affect: normal affect Office Procedures EKG Details: YE 31628-[id number], Complete Assessment & Plan Assessment & Plan (1) Dizziness: Code(s): R42 - Dizziness and giddiness Plan: Dizziness?when?standing?up?quickly?and?pallor,?with?blood?pressure?100/60?and?possible?melena/blood?in?stools Unable to perform EKG as machine is down today. Patient?denies?any?chest?pain. (2) Blood in stool: Code(s): K92.1 - Melena Plan: Patient?is?on?meloxicam?which?may?instigate?GI?bleeding He?did?have?some?retching/vomiting?a?couple?weeks?ago. He?has?been?noticing?reddish?brown?stools/melena Guaiac?test?is?positive?for?blood Check labs including CBC, iron and pt has h/o [place]; check troponin. Referring to GI but may advise going to ED if labwork indicates (3) Hypotension: Code(s): I95.9 - Hypotension, unspecified Plan: Mild?but?symptomatic.??Patient?has?dizziness?when?standing?up?quickly Possible?anemia?and?possible?melena/GI?bleeding. Heart?rate?is?not?elevated?but?patient?is?on?a?beta-dylan Will?have?him?hold?his?hydrochlorothiazide?while?blood?pressures?are?low. Checking labs, stat, and will advise pt when resulted Plan Patient?declines?going?to?ED?at?this?time?but?agrees?to?go?if?blood?work?indicates.??He?is?adamant?that?he?wants?to?get?to?his?neurosurgery?appointment?with?Dr. Kerr today. I?have?referred?him?to?Gastroenterology?stat. Patient?agrees?to?wait?for?my?phone?call?regarding?his?lab?work. Orders: Orders Troponin-I High Sensitivity Today I25.2 - Old myocardial infarction AMB EKG-In Office Today R42 - Dizziness and giddiness Comprehensive Met. Panel Today K92.1 - Melena Complete Blood Count Auto Diff Today K92.1 - Melena, Z00.00 - Encounter for general adult medical examination without abnormal findings IRON PROFILE Today K92.1 - Melena Referrals Gastroenterology Referral K92.1 - Melena, K92.2 - Gastrointestinal hemorrhage, unspecified Coding Level of Care Code Est Pt Level 3 (60852) Diagnoses Dizziness R42 Blood in stool K92.1 Hypotension I95.9 CPT Codes EKG - CPT: 53010-[id number], Complete ([id number])
[2023-11-18 12:07] VITALS: BP 100/60; PULSE 78; RESP 16; TEMP 36.8; O2SAT 97
== END ==
PROVIDERS: PCP Nurse Practitioner Family; Visit Provider Family Medicine
DX: R42 Dizziness and giddiness (principal); K92.1 Melena; I95.9 Hypotension, unspecified
CPT/HCPCS: 93000; 99213

== ENCOUNTER 2023-11-18 12:52 | Outpatient (REF) | payer OTHER, SELFPAY ==
[2023-11-18 14:25] LABS: MANUAL DIFF FLAG NO
[2023-11-18 14:43] LABS: Basophils Percent Auto 0.3 % (0-2); Eosinophils Absolute Auto 0.4 X10*3/uL (0.0-0.4); Eosinophils Percent Auto 4.6 % (0-4); Hematocrit 22.8 % (42.0-52.0); Hemoglobin 7.2 g/dl (14.0-18.0); Imm Gran Abs Auto 0.04 X10*3/uL (0.00-0.03); Imm Gran Pct Auto 0.4 % (0.0-0.4); Lymphocytes Absolute Auto 1.7 X10*3/uL (1.2-4.9); Lymphocytes Percent Auto 18.1 % (20-40); Mean Corpuscular HGB Conc 31.6 g/dl (31.0-36.0); Mean Corpuscular Hemoglobin 30.6 pg (27.0-33.0); Mean Platelet Volume 9.7 fL (9.4-12.4); Monocytes Absolute Auto 0.5 X10*3/uL (0.1-1.2); Monocytes Percent Auto 5.7 % (2-11); Neutrophils Absolute Auto 6.5 x10*3/uL (2.0-8.3); Neutrophils Percent Auto 70.9 % (45-73); Platelet Count 300 X10*3/uL (160-400); Red Blood Count 2.35 X10*6/uL (4.60-5.80); Red Cell Distribution Width 14.9 % (11.0-16.0); White Blood Count 9.2 X10*3/uL (4.8-10.8)
[2023-11-18 15:04] LABS: Alanine Aminotransferase 32 U/L (0-40); Albumin Level 3.8 g/dL (3.5-5.0); Alkaline Phosphatase 63 U/L (39-117); Anion Gap 11 (12-20); Aspartate Amino Transferase 29 U/L (5-37); Bilirubin Total 0.6 mg/dL (0.0-1.0); Blood Urea Nitrogen 30 mg/dL (9-16); Calcium 9.3 mg/dL (8.4-10.2); Carbon Dioxide 27 mmol/L (22-29); Chloride 108 mmol/L (96-108); Estimated Glomerular Filt Rate 53; Glucose Random 73 mg/dL (60-115); Iron 53 mcg/dL (45-160); Percent Iron Saturation 17 % (15-50); Potassium 3.6 mmol/L (3.3-5.1); Sodium 142 mmol/L (135-145); Total Iron Binding Capacity 305 mcg/dL (228-428); Total Protein 5.9 g/dL (6.5-8.0); Unsaturated Iron Binding 252 ug/dL
[2023-11-18 15:23] LABS: Troponin-I High Sensitivity 1356.7 ng/L (<3.5-35.0)
== END 2023-11-18 12:53 | disposition home or self-care (01) ==
LOC: HO.WFDLDS 12:52
PROVIDERS: Visit Provider Family Medicine
DX: I95.1 Orthostatic hypotension (principal); Z00.00 Encounter for general adult medical examination without abnormal findings; K92.1 Melena; I25.2 Old myocardial infarction
CPT/HCPCS: 36415; 80053; 83540; 84484; 85025; 99202

== ENCOUNTER 2023-11-18 13:42 | Outpatient (AMB) | payer OTHER, SELFPAY ==
--- NOTE | 2023-11-18 14:13 | A.SPINEOV_ITS ---
Intake Visit Reasons: Lumbar radiculopathy Intake Note: Mr. Castano is here today c/o left sided neck pain Shop Supervisor Required: No Allergies cat dander Allergy (Intermediate, Verified 11/18/23 14:13) Itchy Eyes Assessment & Plan Assessment & Plan (1) Orthostatic hypotension: Code(s): I95.1 - Orthostatic hypotension Category: Medical Plan Dear colleague Thank you for referring Slava Castano to the office today with a chief complaint of shaking of his left leg. HPI: This 63-year-old male developed shaking of his left leg that makes him fall down. He denies significant pain numbness or weakness. He also has dizziness. He was at the primary care office today with the reduced his hypertensive medication. He was seen by Dr. Lopez, who apparently offered him an L4-5 microdiskectomy to decompress the left L5 nerve root. PMH: Diabetes, hypertension Medications: Albuterol, amlodipine, atorvastatin, bupropion, buspirone, gabapentin, lisinopril, meloxicam, metformin, metoprolol, trazodone Allergies: NKDA Social history: Physical Exam: Pale looking individual. He is able to reproduce the attacks. When he stands up not only his left leg starts to shake but also his bilateral arms. He has to sit down multiple times to make it go away. He denies any pain. Neurological exam is otherwise intact her motor sensation and reflexes Radiological Studies: MRI done at [facility] on 04/07/2023 shows an L4-5 disc herniation compressing the left L5 nerve root in addition to lumbar degenerative disc disease predominantly at L4-5 and L5-S1. Impression/Plan: This patient is most likely suffering from orthostatic hypotension. I do not think that the left leg shaking is explained by the disc herniation in the absence of severe pain. He mentioned he also had an MRI of the cervical spine done and apparently Dr. Lopez Told him that he needed neck surgery as well. I would like to see him with the MRI of the cervical spine to make sure there is no significant spinal cord compression. Again, I am very hesitant to offer this gentleman surgery. Thank you for allowing me to participate in your patients care. total time spent was forty-five minutes in counseling ,coordination of plan, personal review of imaging, surgical decision making and subsequent plan Samy Kerr MD, PhD Spine Fellowship Trained Neurosurgeon Director, [facility] Coding Level of Care Code New Pt Level 4 (44767) Diagnoses Orthostatic hypotension I95.1
== END 2023-11-18 14:38 | disposition home or self-care (01) ==
PROVIDERS: PCP Nurse Practitioner Family; Referring Provider Physical Medicine & Rehabilitation; Visit Provider Neurological Surgery
DX: I95.1 Orthostatic hypotension (principal)
CPT/HCPCS: 99204

== ENCOUNTER 2023-12-01 14:45 | Outpatient (AMB) | payer OTHER, SELFPAY ==
--- NOTE | 2023-12-01 15:03 | A.OFFPC_ITS ---
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 Allergies cat dander Allergy (Intermediate, Verified 12/01/23 15:15) Itchy Eyes Medication List - Last Reconciled 12/01/23 by Linda Howe CNP albuterol sulfate 90 mcg/actuation 1 - 2 puffs inhalation Q4-6H PRN amlodipine 10 mg PO DAILY aspirin 81 mg PO DAILY atorvastatin 80 mg PO DAILY bupropion HCl XL 150 mg PO QAM buspirone 15 mg PO BID gabapentin 800 mg PO TID 30 days lisinopril 40 mg PO DAILY metformin 1,000 mg PO BID metoprolol succinate ER 100 mg PO DAILY trazodone 50 mg PO BEDTIME varenicline (Chantix Starting Month Box) PO PER PKG DIR Tobacco use date assessed: 08/11/23 Dental Screening Dental Screen Date: 10/27/23 HPI HPI Comments History of Present Illness Details 63-year-old male presents for hypertensi on and diabetes follow-up He admits to taking his medications as prescribed without adverse reactions He reports controlled anxiety and depressive symptoms He offers no complaints and denies acute symptoms at this time He was recently admitted and treated at [facility] for GI bleed. He notes that he received 2 units of PRBCs and was discharged home the after 24 hours. Hospital discharge notes not currently available for review He has an appointment scheduled with [facility] gastroentrology for a colonoscopy [facility] Medical History (Updated 12/01/23 @ 15:33 by Linda Howe CNP) Lumbar spondylosis Lumbar radiculopathy Diverticulitis of ascending colon Shoulder pain, left HTN (hypertension) Heart attack Diabetes Surgical History (Updated 09/11/23 @ 11:36 by Linda Howe CNP) No pertinent past surgical history Social History Household Members: Spouse Housing: Apartment Alcohol intake: current Alcohol intake frequency: holidays/special occasions only Patient Tobacco Use Status: Current everyday Tobacco user Tobacco use type: Cigarette Cigarette Packs Per Day: 0.5 Cigarettes Per Day: 8 Years Smoked: 50 e-Cigarette/Vaping Use: Never Used service: No Current occupational status: retired Cognitive needs: No Hearing needs: No Vision needs: No Questionnaire PHQ-9 Over the last 2 weeks, how often have you been bothered by any of the following problems? 1. Little interest or pleasure in doing things: several days 2. Feeling down, depressed, or hopeless: several days 3. Trouble falling or staying asleep, or sleeping too much: more than half the days 4. Feeling tired or having little energy: nearly every day 5. Poor appetite or overeating: nearly every day 6. Feeling bad about yourself - or that you are a failure or have let yourself or your family down: not at all 7. Trouble concentrating on things, such as reading the newspaper or watching television: not at all 8. Moving or speaking so slowly that other people could have noticed. Or the opposite - being so fidgety or restless that you have been moving around a lot more than usual: not at all 9. Thoughts that you would be better off or of hurting yourself in some way: not at all Total score: 10 Depression Screening Interpretation: Positive Depression Screening Follow-up: Existing condition and In treatment Depression Screening Done: Yes 74937 - PHQ-9 Billing: Yes Source: Developed by Drs. Rickey Gordillo, Claudia Lund, Mike Chambers and colleagues, with an educational diane from [employer]. Thrive Questionnaire Date Thrive assessed: 09/11/23 KASSI-7 AMB Questionnaire KASSI-7 Date KASSI - 7 assessed: 12/01/23 Feeling nervous, anxious, or on edge: 3 = Nearly every day Not being able to stop or control worryin = Not at all Worrying too much about different things: 0 = Not at all Trouble relaxin = Several days Being so restless that it is hard to sit still: 0 = Not at all Becoming easily annoyed or irritable: 0 = Not at all Feeling afraid as if something awful might happen: 0 = Not at all Total KASSI-7 score (0-4 normal; 5-9 mild; 10-14 moderate; 15-21 severe): 4 Source: Developed by Drs. Rickey L. RandClaudia grewal, Mike Chambers and colleagues, with an educational diane from [employer]. KASSI-7 Assessment Billing KASSI-7 Assessment Tool: KASSI-7 Assessment 90550 Review of Systems Const Details: Const Denies chills, Denies fatigue, Denies fever(s), Denies headache(s) and Denies weakness ENT Denies dizziness and Denies headache(s) Card Denies chest pain, Denies lightheadedness, Denies dyspnea and Denies other (Palpitations) Resp Denies cough, Denies dyspnea, Denies wheezing and Denies other ( shortness of breath) GI Denies abdominal pain, Denies melena, Denies hematochezia, Denies change in b owel habits, Denies dyspepsia and Denies nausea Denies hematuria and Denies dysuria Musc Denies abnormal gait, Denies myalgias, Denies arthralgias, Denies numbness and Denies tingling Skin/Breast Denies rash, Denies unusual bruising and Denies wounds Neuro Denies abnormal gait, Denies dizziness, Denies headache(s), Denies memory loss, Denies numbness, Denies Sensory deficit (Neuro), Denies tingling and Denies weakness Psych Denies anxiety, Denies depression, Denies memory loss Endo Denies cold intolerance, Denies fatigue, Denies heat intolerance, Denies polydipsia and Denies polyuria Aller/Immun Denies wheezing Physical exam (Primary Care) Vital Signs: Last Vital Signs Pulse 81 12/01/23 15:12 Resp 16 12/01/23 15:12 BP 124/58 L 12/01/23 15:12 Pulse Ox 92 12/01/23 15:12 Oxygen Delivery Method Room Air 12/01/23 15:12 BMI result Body Mass Index 35.4 Tobacco/Smoking Status: Tobacco use Status Tobacco use date assessed 08/11/23 12/01/23 15:04 Patient Tobacco Use Status Current everyday Tobacco 12/01/23 15:04 Tobacco use type Cigarette 12/01/23 15:04 e-Cigarette/Vaping Use Never Used 12/01/23 15:04 PHQ-9: PHQ-9 Score PHQ-9: Total score 10 12/01/23 15:14 Depression Screening Interpretation: Positive Depression Screening Follow-up: Existing condition and In treatment Thrive Assessment: Date of Thrive Assessment Date Thrive assessed 09/11/23 12/01/23 15:04 Const Other: General: no acute distress and well developed Nutritional Appearance: well nourished Orientation/consciousness: patient oriented x3 [facility] Head: Yes normocephalic and Yes atraumatic Eyes General: appearance normal, both eyes and all related structures Pupils: Equal, round and reactive pupils present EOM: EOMs intact bilaterally Resp Effort & Inspection: normal respiratory effort Auscultation: clear to auscultation bilaterally Cardio Rate: regular rate Rhythm: regular rhythm Heart sounds: S1 normal heart sound present, S2 normal heart sound present, no gallops, no murmurs and no rubs GI Palpation (GI): No Abdominal aortic bruit present, Soft to palpation, nontender, No hepatosplenomegaly present and No Rebound tenderness present Auscultation: normal bowel sounds General: Yes no CVA tenderness Back/Spine/Pelvis Back: no CVA tenderness Cervical Spine: cervical ROM normal and No Cervical spine tenderness Thoracic/Lumbar Spine: thoraco-lumbar ROM normal, No pain with thoraco-lumbar ROM, No thoracic spinal tenderness and No lumbar spinal tenderness Extrem General: Yes normal to inspection, No edema and No calf tenderness Skin General: warm and dry. Normal skin color. Normal skin turgor Neuro General: patient oriented x3, gait normal and no focal neuro deficit Cranial nerves: Yes Equal, round and reactive pupils present Cognition (Neuro): normal cognition Gait exam (Neuro): Normal gait present Sensory Exam: No Sensory deficit (Neuro) Psych Appearance: grossly normal Affect: normal affect Attitude: cooperative Thought process: Normal thought process present Results AMB Hemoglobin A1c AMB Hemoglobin A1c 5.4 % Last Edit by Paula Bradshaw CMA on 12/01/23 15:16 Assessment and Plan Assessment & Plan (1) Type 2 diabetes mellitus: Code(s): E11.9 - Type 2 diabetes mellitus without complications Plan: A1c today is 5.4%, within goal of less than 7.0% Continue current treatment regimen ADA diet and routine exercise encouraged Follow-up in 3 months or sooner with symptoms or concerns Verbalized understanding and agreed with the treatment plan (2) HTN (hypertension): Code(s): I10 - Essential (primary) hypertension Plan: Blood pressure is 124/58, within goal of less than 130/80 Continue current treatment regimen Low-sodium diet encouraged Follow-up in 3 months Verbalized understanding and agreed with the treatment plan (3) Anxiety and depression: Code(s): F41.9 - Anxiety disorder, unspecified; F32.A - Depression, unspecified Plan: Controlled anxiety and depressive symptoms PHQ-9 score revealed moderate depression. KASSI-7 score is normal Continue current treatment regimen Routine exercise encouraged Follow-up in 3 months or sooner with symptoms or concerns Verbalized understanding and agreed with the treatment plan (4) Hospital discharge follow-up: Code(s): Z09 - Encounter for follow-up examination after completed treatment for conditions other than malignant neoplasm Plan: He was recently treated for GI bleed at [facility]. He notes that he received 2 units of PRBCs and discharged home after 24 hours No acute symptoms at this time Discharge paperwork not available for review. Will request records [facility] Encouraged to follow-up with [facility] gastroenterology as planned for colonoscopy Verbalized understanding and agreed with the plan Orders: Orders AMB Hemoglobin A1c Today E11.9 - Type 2 diabetes mellitus without complications Coding Level of Care Code Est Pt Level 4 (65075) Complex EM visit Add On G2211 Diagnoses Type 2 diabetes mellitus E11.9 HTN (hypertension) I10 Anxiety and depression F41.9; F32.A Hospital discharge follow-up Z09 Additional Codes KASSI-7 Assessment Billing - KASSI-7 Assessment Tool: KASSI-7 Assessment 74841 ([id number])
[2023-12-01 15:12] VITALS: BP 124/58; PULSE 81; RESP 16; O2SAT 92; BMI 35.4
== END 2023-12-01 15:32 | disposition home or self-care (01) ==
PROVIDERS: PCP Nurse Practitioner Family; Visit Provider Nurse Practitioner Family
DX: E11.9 Type 2 diabetes mellitus without complications (principal); I10 Essential (primary) hypertension; F41.9 Anxiety disorder, unspecified; F32.A Depression, unspecified; Z09 Encounter for follow-up examination after completed treatment for conditions other than malignant neoplasm
CPT/HCPCS: 83036; 99214; G2211

== ENCOUNTER 2023-12-10 09:07 | Outpatient (AMB) | payer OTHER, SELFPAY ==
--- NOTE | 2023-12-10 09:26 | MHC.OFFVIS ---
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 Accompanied by: Self / Same As Patient Allergies cat dander Allergy (Intermediate, Verified 12/01/23 15:15) Itchy Eyes Medication List - Last Reconciled 12/10/23 by Jesus Alberto Santana MD albuterol sulfate 90 mcg/actuation 1 - 2 puffs inhalation Q4-6H PRN amlodipine 10 mg PO DAILY aspirin 81 mg PO DAILY atorvastatin 80 mg PO DAILY bupropion HCl XL 150 mg PO QAM buspirone 15 mg PO BID gabapentin 800 mg PO TID 30 days lisinopril 40 mg PO DAILY metformin 1,000 mg PO BID metoprolol succinate ER 100 mg PO DAILY trazodone 50 mg PO BEDTIME HPI Comments Details: Slava is here for consultation regarding coronary disease. Previously going to [facility] but transferring because of insurance issues. Per last cardiology note, he has a chronically occluded PDA and 60-70% lesion in the mid RCA. He states he does not have any complaints like angina or shortness of breath. Recently, he was admitted for GI bleed to [facility]. It seems he got couple of blood transfusions and then endoscopy and got discharged. Troponins checked that time were abnormal suggestive of a type 2 NSTEMI. He states he does not really have any complaints like angina. He states he feels fine. [facility] Medical History (Updated 12/10/23 @ 10:46 by Jesus Alberto Santana MD) Atherosclerotic cardiovascular disease Lumbar spondylosis Lumbar radiculopathy Diverticulitis of ascending colon Shoulder pain, left HTN (hypertension) Heart attack Diabetes Surgical History No pertinent past surgical history Family History (Updated 12/10/23 @ 09:32 by Nikky Martinez CMA) Mother Abdominal aneurysm HTN (hypertension) Social History Household Members: Spouse Housing: Apartment Alcohol intake: current Alcohol intake frequency: holidays/special occasions only Patient Tobacco Use Status: Current everyday Tobacco user Tobacco use type: Cigarette Cigarette Packs Per Day: 0.5 Cigarettes Per Day: 8 Years Smoked: 50 e-Cigarette/Vaping Use: Never Used service: No Current occupational status: retired Cognitive needs: No Hearing needs: No Vision needs: No Review of Systems Const Denies chills, Denies daytime sleepiness, Denies fatigue, Denies fever(s), Denies poor appetite, Denies snoring, Denies stops breathing during sleep, Denies weakness, Denies weight gain and Denies weight loss Eyes Denies loss of vision ENT Denies dizziness and Denies hearing loss Card Denies chest pain, Denies irregular heart rhythm, Denies claudication, Denies leg edema, Denies lightheadedness, Denies palpitations, Denies dyspnea on exertion and Denies orthopnea Resp Denies cough, Denies excessive phlegm production, Denies dyspnea on exertion, Denies snoring and Denies wheezing GI Denies abdominal pain, Denies hematochezia, Denies change in bowel habits, Denies nausea and Denies vomiting Denies dysuria and Denies urinary frequency Musc Denies arthralgias, Denies muscle weakness, Denies numbness and Denies other Skin/Breast Denies nail changes and Denies rash Neuro Denies Abnormal speech present, Denies dizziness, Denies loss of vision, Denies memory loss, Denies numbness and Denies weakness Psych Denies depression and Denies memory loss Endo Denies fatigue and Denies palpitations Anthony/Lymph Denies easy bruising Aller/Immun Denies wheezing Physical Exam Vital Signs: Last Vital Signs Pulse 69 12/10/23 09:27 BP 170/90 H 12/10/23 09:27 BMI result Body Mass Index 35.3 Const General: comfortable and no acute distress Orientation/consciousness: patient oriented x3 HEENT Other: Unremarkable Head: Yes normal to inspection Neck Neck: Yes normal visual inspection Chest Chest palpation & inspection: normal inspection of the chest Resp Auscultation: clear to auscultation bilaterally Cardio Palpation: normal PMI Heart sounds: S1 normal heart sound present, S2 normal heart sound present, no gallops, no murmurs and no rubs GI Palpation (GI): Soft to palpation Back/Spine/Pelvis Other: unremarkable Skin General skin exam: no rashes or lesions noted Neuro General: patient oriented x3 Speech: No Abnormal speech present Extrem General: Yes normal to inspection Psych Mental Status: mental status grossly normal Office Procedures EKG Details: EKG with underlying sinus rhythm at 69/Min; possible atrial/Min; nonspecific ST-[place] [id number], Complete Assessment & Plan Assessment & Plan (1) NSTEMI (non-ST elevated myocardial infarction): Code(s): I21.4 - Non-ST elevation (NSTEMI) myocardial infarction Category: Medical (2) Atherosclerotic cardiovascular disease: Code(s): I25.10 - Atherosclerotic heart disease of [place] coronary artery without angina pectoris Category: Medical (3) GI bleeding: Code(s): K92.2 - Gastrointestinal hemorrhage, unspecified Category: Medical (4) HTN (hypertension): Code(s): I10 - Essential (primary) hypertension Category: Medical Plan Per last cardiology note, chronically occluded PDA and 60-70% lesion in the mid RCA. Echocardiogram from 2021-LVEF 50-55%. Mid to apical anterolateral wall hypokinetic. Recently, elevated troponins in the setting of GI bleeding. We will repeat echocardiogram to re-evaluate LVEF and wall motion. Likely will need stress testing but need to ensure that GI bleeding issues resolve. Requested PCP to check his CBC. Will also need to obtain records from [facility]. With regard to blood pressure, elevated today but he states normally it is much lower and that he has not taken his meds yet. If the trend continues, may need changes. Follow-up in a few weeks' time. Orders: Orders CA echo transthoracic complete Today I21.4 - Non-ST elevation (NSTEMI) myocardial infarction, I25.10 - Atherosclerotic heart disease of [place] coronary artery without angina pectoris Coding Level of Care Code New Pt Level 4 (37950) Diagnoses NSTEMI (non-ST elevated myocardial infarction) I21.4 Atherosclerotic cardiovascular disease I25.10 GI bleeding K92.2 HTN (hypertension) I10 CPT Codes EKG - CPT: 10041-[id number], Complete ([id number])
[2023-12-10 09:27] VITALS: BP 170/90; PULSE 69; BMI 35.3
== END 2023-12-10 09:59 | disposition home or self-care (01) ==
PROVIDERS: PCP Nurse Practitioner Family; Visit Provider Internal Medicine
DX: I21.4 Non-ST elevation (NSTEMI) myocardial infarction (principal); I25.10 Atherosclerotic heart disease of native coronary artery without angina pectoris; K92.2 Gastrointestinal hemorrhage, unspecified; I10 Essential (primary) hypertension
CPT/HCPCS: 93010; 99204; 99214

== ENCOUNTER → 2023-12-10 09:07 | Outpatient (BNVA) | payer OTHER, SELFPAY | PROVIDERS: PCP Nurse Practitioner Family; Visit Provider Internal Medicine | DX: I21.4 Non-ST elevation (NSTEMI) myocardial infarction (principal); I25.10 Atherosclerotic heart disease of native coronary artery without angina pectoris; K92.2 Gastrointestinal hemorrhage, unspecified; I10 Essential (primary) hypertension | CPT/HCPCS: 93005; 99202 ==

== ENCOUNTER → 2023-12-11 10:32 | Outpatient (BNVA) | payer OTHER, SELFPAY | PROVIDERS: PCP Nurse Practitioner Family; Visit Provider Neurological Surgery ==

== ENCOUNTER 2023-12-11 12:31 | Outpatient (REF) | payer OTHER, SELFPAY ==
[2023-12-11 14:43] LABS: Hematocrit 33.5 % (42.0-52.0); Hemoglobin 10.3 g/dl (14.0-18.0); Mean Corpuscular HGB Conc 30.7 g/dl (31.0-36.0); Mean Corpuscular Hemoglobin 26.5 pg (27.0-33.0); Mean Corpuscular Volume 86.3 fL (80.0-98.0); Mean Platelet Volume 9.7 fL (9.4-12.4); Platelet Count 244 X10*3/uL (160-400); Red Blood Count 3.88 X10*6/uL (4.60-5.80); Red Cell Distribution Width 14.6 % (11.0-16.0); White Blood Count 8.5 X10*3/uL (4.8-10.8)
== END 2023-12-11 12:32 | disposition home or self-care (01) ==
LOC: HO.WFDLDS 12:31
PROVIDERS: Visit Provider Nurse Practitioner Family
DX: K92.2 Gastrointestinal hemorrhage, unspecified (principal)
CPT/HCPCS: 36415; 85027

== ENCOUNTER 2023-12-18 08:12 | Outpatient (AMB) | payer OTHER, SELFPAY ==
--- NOTE | 2023-12-18 08:14 | A.OFFPC_ITS ---
Vital Signs 12/18/23 08:19 12/18/23 08:36 Height 6 ft Weight 254 lb 6 oz BMI 34.5 BP 180/94 H 160/86 H Blood Pressure Location Rt brachial Rt brachial Position Sitting Sitting Respiration 16 Pulse 69 76 Pulse Source Pulse Oximeter Auscultation Temp 97.6 F Temp Source Oral Pulse Oximetry (%) 96 Oxygen Delivery Method Room Air Intake Visit Reasons: experincing anxiety need meds Intake Note: patient here c/o anxiety and would like medication. Door Fitter Required: No Allergies cat dander Allergy (Intermediate, Verified 12/18/23 08:33) Itchy Eyes Medication List - Last Reconciled 12/18/23 by Linda Howe CNP albuterol sulfate 90 mcg/actuation 1 - 2 puffs inhalation Q4-6H PRN amlodipine 10 mg PO DAILY aspirin 81 mg PO DAILY atorvastatin 80 mg PO DAILY bupropion HCl XL 150 mg PO QAM buspirone 15 mg PO BID gabapentin 800 mg PO TID 30 days lisinopril 40 mg PO DAILY metformin 1,000 mg PO BID metoprolol succinate ER 100 mg PO DAILY trazodone 50 mg PO BEDTIME Tobacco use date assessed: 12/18/23 Dental Screening Dental Screen Date: 10/27/23 HPI HPI Comments History of Present Illness Details 63 y/o male presents with complaints of increased anxiety. He notes that i've got wicked anxiety and not sleep. He has been sleeping average of 2 hours nightly for the past 3 weeks. He notes that, i'm just getting out of my skin. He does not know the source of his anxiety. He admits to taking his medications as as prescribed. He notes that he took is medications as prescribed this morning. He admits to making healthy dietary changes and limiting salt. He also rides his bicycle for an hour 3 times a week. [facility] Medical History (Updated 12/18/23 @ 08:49 by Linda Howe CNP) Atherosclerotic cardiovascular disease History of AK (myocardial infarction) HTN (hypertension) Type 2 diabetes mellitus Nicotine dependence, cigarettes, uncomplicated History of GI bleed Diverticulitis of ascending colon Lumbar spondylosis Lumbar radiculopathy Shoulder pain, left Surgical History (Updated 12/11/23 @ 11:35 by Johana Car PA-C) History of colonoscopy Family History (Updated 12/10/23 @ 09:32 by Nikky Martinez CMA) Mother Abdominal aneurysm HTN (hypertension) Social History Household Members: Spouse Housing: Apartment Alcohol intake: current Alcohol intake frequency: holidays/special occasions only Patient Tobacco Use Status: Current everyday Tobacco user Tobacco use type: Cigarette Cigarette Packs Per Day: 0.5 Cigarettes Per Day: 8 Years Smoked: 50 e-Cigarette/Vaping Use: Never Used service: No Current occupational status: retired Cognitive needs: No Hearing needs: No Vision needs: No Questionnaire PHQ-9 Over the last 2 weeks, how often have you been bothered by any of the following problems? 1. Little interest or pleasure in doing things: nearly every day 2. Feeling down, depressed, or hopeless: not at all 3. Trouble falling or staying asleep, or sleeping too much: nearly every day 4. Feeling tired or having little energy: nearly every day 5. Poor appetite or overeating: several days 6. Feeling bad about yourself - or that you are a failure or have let yourself or your family down: not at all 7. Trouble concentrating on things, such as reading the newspaper or watching television: not at all 8. Moving or speaking so slowly that other people could have noticed. Or the opposite - being so fidgety or restless that you have been moving around a lot more than usual: not at all 9. Thoughts that you would be better off or of hurting yourself in some way: not at all Total score: 10 Depression Screening Interpretation: Positive Depression Screening Follow-up: Existing condition and In treatment Depression Screening Done: Yes 87119 - PHQ-9 Billing: Yes Source: Developed by Drs. Rickey Gordillo, Claudia Lund, Mike Chambers and colleagues, with an educational diane from [employer]. Thrive Questionnaire Date Thrive assessed: 09/11/23 KASSI-7 AMB Questionnaire KASSI-7 Date KASSI - 7 assessed: 12/18/23 Feeling nervous, anxious, or on edge: 3 = Nearly every day Not being able to stop or control worryin = Not at all Worrying too much about different things: 0 = Not at all Trouble relaxin = Nearly every day Being so restless that it is hard to sit still: 3 = Nearly every day Becoming easily annoyed or irritable: 3 = Nearly every day Feeling afraid as if something awful might happen: 1 = Several days Total KASSI-7 score (0-4 normal; 5-9 mild; 10-14 moderate; 15-21 severe): 13 Source: Developed by Drs. Rickey Gordillo, Claudia Lund, Mike Chambers and colleagues, with an educational diane from [employer]. KASSI-7 Assessment Billing KASSI-7 Assessment Tool: KASSI-7 Assessment 92682 Review of Systems Const Details: Const Denies chills, Denies fatigue, Denies fever(s), Denies headache(s) and Denies weakness ENT Denies dizziness and Denies headache(s) Card Denies chest pain, Denies lightheadedness, Denies dyspnea and Denies other (Palpitations) Resp Denies cough, Denies dyspnea, Denies wheezing and Denies other ( shortness of breath) GI Denies abdominal pain, Denies melena, Denies hematochezia, Denies change in bowel habits, Denies dyspepsia and Denies nausea Denies hematuria and Denies dysuria Musc Denies abnormal gait, Denies myalgias, Denies arthralgias, Denies numbness and Denies tingling Skin/Breast Denies rash, Denies unusual bruising and Denies wounds Neuro Denies abnormal gait, Denies dizziness, Denies headache(s), Denies memory loss, Denies numbness, Denies Sensory deficit (Neuro), Denies tingling and Denies weakness Psych Reports anxiety, Denies depression, Denies memory loss Endo Denies cold intolerance, Denies fatigue, Denies heat intolerance, Denies polydipsia and Denies polyuria Aller/Immun Denies wheezing Physical exam (Primary Care) Tobacco/Smoking Status: Tobacco use Status Tobacco use date assessed 12/18/23 12/18/23 08:18 Patient Tobacco Use Status Current everyday Tobacco 12/18/23 08:16 Tobacco use type Cigarette 12/18/23 08:16 e-Cigarette/Vaping Use Never Used 12/18/23 08:16 Depression Screening Interpretation: Positive Depression Screening Follow-up: Existing condition and In treatment Thrive Assessment: Date of Thrive Assessment Date Thrive assessed 09/11/23 12/18/23 08:16 Const Other: General: no acute distress and well developed Nutritional Appearance: well nourished Orientation/consciousness: patient oriented x3 [facility] Head: Yes normocephalic and Yes atraumatic Eyes General: appearance normal, both eyes and all related structures Pupils: Equal, round and reactive pupils present EOM: EOMs intact bilaterally Resp Effort & Inspection: normal respiratory effort Auscultation: clear to auscultation bilaterally Cardio Rate: regular rate Rhythm: regular rhythm Heart sounds: S1 normal heart sound present, S2 normal heart sound present, no gallops, no murmurs and no rubs GI Palpation (GI): No Abdominal aortic bruit present, Soft to palpation, nontender, No hepatosplenomegaly present and No Rebound tenderness present Auscultation: normal bowel sounds General: Yes no CVA tenderness Back/Spine/Pelvis Back: no CVA tenderness Cervical Spine: cervical ROM normal and No Cervical spine tenderness Thoracic/Lumbar Spine: thoraco-lumbar ROM normal, No pain with thoraco-lumbar ROM, No thoracic spinal tenderness and No lumbar spinal tenderness Extrem General: Yes normal to inspection, No edema and No calf tenderness Skin General: warm and dry. Normal skin color. Normal skin turgor Neuro General: patient oriented x3, gait normal and no focal neuro deficit Cranial nerves: Yes Equal, round and reactive pupils present Cognition (Neuro): normal cognition Gait exam (Neuro): Normal gait present Sensory Exam: No Sensory deficit (Neuro) Psych Appearance: grossly normal Affect: normal affect Attitude: cooperative Thought process: Normal thought process present Assessment and Plan Assessment & Plan (1) Anxiety and depression: Code(s): F41.9 - Anxiety disorder, unspecified; F32.A - Depression, unspecified Plan: Reports increased anxiety symptoms. He does not know the source of his anxiety. Sleep is an issue; he sleeps an average of 2 hours nightly PHQ-9 and KASSI-7 scores revealed moderate depression and anxiety Will increase buspirone to 15 mg 3 times daily Will discontinue trazodone and start Seroquel 25 mg every night to target anxiety and insomnia Continue to take Wellbutrin 150 mg daily Routine exercise encouraged Follow-up in 2 weeks or sooner with worsening or new symptoms Verbalized understanding and agreed with treatment plan (2) Insomnia: Code(s): G47.00 - Insomnia, unspecified Plan: Plan as above (3) HTN (hypertension): Code(s): I10 - Essential (primary) hypertension Plan: Resting blood pressure is 160/86, above goal of less than 130/80. He admits to taking his medications as prescribed and maintaining a low-sodium diet. Elev ated blood pressure may be attributed to anxiety symptoms and poor sleep. Advised to take antihypertensive and psychotropic medications as prescribed. His blood pressure may improve as his anxiety symptoms improve. Follow-up in two weeks or sooner with worsening or new symptoms. Verbalized understanding and agreed with the treatment plan. Medications: New quetiapine (Seroquel) 25 mg PO BEDTIME 30 days 30 tabs 2RF Changed From buspirone 15 mg PO BID To buspirone 15 mg PO TID 30 days 90 tabs 3RF Coding Level of Care Code Est Pt Level 4 (93972) Complex EM visit Add On G2211 Diagnoses Anxiety and depression F41.9; F32.A Insomnia G47.00 HTN (hypertension) I10 Additional Codes KASSI-7 Assessment Billing - KASSI-7 Assessment Tool: KASSI-7 Assessment 46719 ([id number])
[2023-12-18 08:19] VITALS: BP 180/94; PULSE 69; RESP 16; TEMP 36.4; O2SAT 96; BMI 34.5
[2023-12-18 08:36] VITALS: BP 160/86; PULSE 76
== END 2023-12-18 08:45 | disposition home or self-care (01) ==
LOC: HO.HMGFM 08:12
PROVIDERS: PCP Nurse Practitioner Family; Visit Provider Nurse Practitioner Family
DX: F41.9 Anxiety disorder, unspecified (principal); F32.A Depression, unspecified; G47.00 Insomnia, unspecified; I10 Essential (primary) hypertension
CPT/HCPCS: 96127; 99214; G2211

== ENCOUNTER 2024-01-01 08:58 | Outpatient (AMB) | payer OTHER, SELFPAY ==
--- NOTE | 2024-01-01 07:44 | MHC.OFFVIS ---
Intake Visit Reasons: Current Smoker Allergies cat dander Allergy (Intermediate, Verified 12/18/23 08:33) Itchy Eyes HPI HPI Current Smoker: Details: Initial visit for this 63yo smoker with a 4+0PYH. Patient has been smoking since age 11 for 52 years at 1ppd. Currently at 1/4-1/2ppd. . Denies marijuana use. Denies second hand smoke exposure. Denies exposure to chemicals or substances like asbestos. . Denies known family history of lung cancer. Denies personal history of cancers. Denies chest CT in last year. . Denies recent travel outside the [place]. Denies recent respiratory illness or recent hospitalization for respiratory issues. Denies testing positive for COVID. Denies receiving COVID Vaccine. . Denies fever, chills, new/worsening cough, hemoptysis, hoarseness or dysphagia. Denies significant chest pain, significant dyspnea or unintentional weight loss. Patient Lung Cancer Screening Questionnaire reviewed with patient by provider. . Shared Decision Making Completed. Patient meets criteria. Discussed in detail with patient, the risk vs benefit of LDCT screening. Patient consents to proceed with scan. Discussed smoking cessation. Patient showed interest in trying Chantix as it worked for his . We discussed his history of heart attach 10/2023 and increased risk of heart attack with Chantix. I noted I would send a message to his PCP to discuss other options. [facility] Medical History (Updated 01/01/24 @ 09:28 by Johana Car PA-C) Atherosclerotic cardiovascular disease History of [place] (myocardial infarction) Thoracic aortic aneurysm HTN (hypertension) Type 2 diabetes mellitus Nicotine dependence, cigarettes, uncomplicated History of GI bleed History of blood transfusion History of diverticulitis of colon Enlarged prostate Lumbar spondylosis Lumbar radiculopathy Shoulder pain, left Surgical History (Updated 01/01/24 @ 09:30 by Johana Car PA-C) History of tonsillectomy History of coronary angiogram History of resection of large bowel History of colonoscopy History of rotator cuff surgery Family History (Updated 12/10/23 @ 09:32 by Nikky Martinez CMA) Mother Abdominal aneurysm HTN (hypertension) Social History (Updated 01/01/24 @ 09:28 by Johana Car PA-C) Household Members: Spouse Housing: Apartment Alcohol intake: current Alcohol intake frequency: holidays/special occasions only Patient Tobacco Use Status: Current everyday Tobacco user Tobacco use type: Cigarette Cigarette Packs Per Day: 0.5 Cigarettes Per Day: 8 Years Smoked: (onset 11yo, 1ppd x 52yrs, now 1/4-1/2ppd - 40+pyh) e-Cigarette/Vaping Use: Never Used service: No Current occupational status: retired Cognitive needs: No Hearing needs: No Vision needs: No Assessment & Plan Assessment & Plan (1) Nicotine dependence, cigarettes, uncomplicated: Comment: (onset 11yo, 1ppd x 52yrs, now 1/4-1/2ppd - 40+pyh) Code(s): F17.210 - Nicotine dependence, cigarettes, uncomplicated Category: Medical Plan: - SDM visit completed today in office. - Patient meets criteria for LDCT for lung cancer screening purposes and is asymptomatic. - Smoking cessation counseling offered. Patients can always call [phone]. - Will arrange for a LDCT scan of the chest for screening purposes at [facility]. - Risks, benefits, and alternatives were discussed in detail and the patient agrees to proceed. - Risks discussed include but are not limited to: radiation exposure, anxiety during testing and while awaiting results, false negatives, false positives and possibility of additional intervention such as further imaging or surgical procedures for benign disease. - Benefits are obviously detection of lung cancer at an early stage which can lead to improved outcomes. - Discussed the importance of screening program compliance with adherence to yearly LDCT scan as scheduled - or sooner interval scans for personalized screening regimen. - Discussed follow up plan. Our office will send a letter discussing results and if needed set up phone call and office visit based on CT findings. - Patient educated on results categorization and the management decisions for suspicious findings potentially found on the screening LDCT scan. Any patient with a Lung RADS score of 3 or 4 will be reviewed by a multidisciplinary team at [facility] to form a plan of action in regards to scan findings. - If further work up is warranted for a suspicious lung finding this will be followed by the Lung Cancer Screening program in conjunction with the Thoracic Surgery Department at [facility]. - A copy of the office note and LDCT will be sent to the patient's PCP - as well as documentation on any associated further plans of care. - Incidental findings on LDCT are the PCP's responsibility. These findings are indicated with an S finding on the LDCT Assessment. A note discussing the findings will be sent to the PCP who is then responsible for further management. - All questions answered.? Coding Level of Care Code Lung Cancer Screening G0296 Diagnoses Nicotine dependence, cigarettes, uncomplicated F17.210
== END 2024-01-01 09:40 | disposition home or self-care (01) ==
PROVIDERS: PCP Nurse Practitioner Family; Visit Provider Physician Assistant Medical
DX: F17.210 Nicotine dependence, cigarettes, uncomplicated (principal)
CPT/HCPCS: G0296

== ENCOUNTER 2024-01-01 09:39 | Outpatient (REF) | payer OTHER, SELFPAY ==
--- NOTE | ~2024-01-01 | CT_ITS ---
EXAMINATION: CT LOW-DOSE SCREENING CHEST WITHOUT CONTRAST CLINICAL INFORMATION: Nicotine dependence, cigarettes, uncomplicated. The patient is a current smoker with a 56 pack-year history of smoking. COMPARISON: None available. TECHNIQUE: Multidetector volumetric CT imaging of the chest is performed on a Siemens SOMATOM Definition scanner without contrast using low dose technique. Additional 2D coronal and sagittal reformatted images and axial 3D maximum intensity projection (MIP) images are generated on the CT workstation. This CT examination was performed using dose optimization techniques as appropriate, variously including the following: *Automated exposure control. *Adjustment of mA and/or kV according to patient size (this includes techniques or standardized protocols for targeted exams where dose is matched to indication/reason for exam; i.e. extremities or head). *Use of iterative reconstruction technique. TOTAL EXAM DLP: 86 mGy-cm. CTDIvol: 2.39 mGy. FINDINGS: PULMONARY NODULES: A 4 mm perifissural left lower lobe lymph node is present (5:310). No suspicious pulmonary nodules. LUNGS: Lungs bilaterally symmetrically expanded. There is mild emphysema and bronchial thickening without bronchiectasis. There are small bilateral pleural effusions present, left greater than right. No pneumothorax. Central airways patent. MEDIASTINUM: No mediastinal, hilar or axillary adenopathy or free fluid collection. CORONARY ARTERY CALCIFICATION: None visualized on this study. THYROID GLAND: Unremarkable to the extent seen. CARDIOVASCULAR STRUCTURES: Aortic and heart size normal. No pericardial effusion. CHEST WALL/AXILLA: Unremarkable. UPPER ABDOMEN: There is at least one liver mass measuring 2.6 cm and 24 Hounsfield units just beneath the dome of the hemidiaphragm which is indeterminate. A benign 0.7 cm Bosniak class I renal cyst is noted which requires no additional imaging or follow up. No solid renal masses are seen. OSSEOUS STRUCTURES: Degenerative changes seen in the spine most marked from T8 through T10, fusion of T9 and T10 vertebral bodies. CT/CT lung screening IMPRESSION: No findings seen suspicious for malignancy. ASSESSMENT: 1. Lung-RADS Category 1: Negative. There are no nodules or there are definitely benign nodules. N/A. 2. Lung-RADS Category S: Negative. There are no clinically significant or potentially clinically significant findings not related to the lungs requiring urgent additional evaluation. RECOMMENDATION: Continued routine annual low-dose CT lung screening in 1 year is recommended. An order for CT CHEST LOW DOSE CANCER SCREENING ([id number]) can be placed. Electronically signed by: Farhad Sanford MD 03/01/2024 11:35 PM JORGE TIJERINA
== END 2024-01-01 09:40 | disposition home or self-care (01) ==
LOC: HO.CT 09:39
PROVIDERS: PCP Nurse Practitioner Family; Visit Provider Physician Assistant Medical
DX: Z12.2 Encounter for screening for malignant neoplasm of respiratory organs (principal); F17.210 Nicotine dependence, cigarettes, uncomplicated
CPT/HCPCS: 71271; G0296

== ENCOUNTER 2024-01-04 10:36 | Outpatient (AMB) | payer OTHER, SELFPAY ==
--- NOTE | 2024-01-04 10:40 | A.OFFPC_ITS ---
Vital Signs 01/04/24 10:52 01/04/24 11:12 Height 6 ft Weight 240 lb 6 oz BMI 32.6 BP 178/88 H 170/90 H Blood Pressure Location Rt brachial Rt brachial Position Sitting Sitting Respiration 16 Pulse 72 80 Pulse Source Pulse Oximeter Auscultation Temp 97.4 F Temp Source Oral Pulse Oximetry (%) 97 Oxygen Delivery Method Room Air Intake Visit Reasons: 2 wks anxiety, depression Intake Note: patient here for 2 weeks follow up on anxiety Webbing Se[employer] P[employer] Net Required: No Allergies cat dander Allergy (Intermediate, Verified 01/04/24 11:04) Itchy Eyes Medication List - Last Reconciled 01/04/24 by Linda Howe CNP albuterol sulfate 90 mcg/actuation 1 - 2 puffs inhalation Q4-6H PRN amlodipine 10 mg PO DAILY aspirin 81 mg PO DAILY atorvastatin 80 mg PO DAILY bupropion HCl XL 150 mg PO QAM buspirone 15 mg PO TID 30 days gabapentin 800 mg PO TID 30 days lisinopril 40 mg PO DAILY metformin 1,000 mg PO BID metoprolol succinate ER 100 mg PO DAILY quetiapine (Seroquel) 25 mg PO BEDTIME 30 days Tobacco use date assessed: 01/04/24 Fall risk assessment: 2 + Falls in past year Last assessed Fall Risk: 01/04/24 Dental Screening Dental Screen Date: 01/04/24 Did you have a dental visit in the last 12 months?: No Did you have a dental problem in the last 6 months where you did not have access to dental care?: No Was dental information given to patient?: Patient has dentist HPI HPI Comments History of Present Illness Details 63-year-old male presents for hypertensi on, anxiety, depression, and insomnia follow-up He admits to taking his medications as prescribed without adverse reactions He notes that his anxiety and depressive symptoms have significantly improved. His sleep has also improved; he sleeps an average of 5 or 6 hours nightly He admits to making healthy lifestyle changes, including diet and exercise. He is excited that he lost 14 lb since his last visit He notes swelling to his lower legs and feet since his last hospitalization. He denies chest pain or shortness of breath He has an appointment scheduled with [facility] [place] [place] gastroenterology for colonoscopy. He denies bloody stool. No dizziness, lightheadedness, or fatigue PFSH Medical History (Updated 01/04/24 @ 11:25 by Linda Howe CNP) Atherosclerotic cardiovascular disease History of MO (myocardial infarction) Thoracic aortic aneurysm HTN (hypertension) Type 2 diabetes mellitus Nicotine dependence, cigarettes, uncomplicated History of GI bleed History of blood transfusion History of diverticulitis of colon Enlarged prostate Lumbar spondylosis Lumbar radiculopathy Shoulder pain, left Surgical History (Updated 01/01/24 @ 09:30 by Johana Car PA-C) History of tonsillectomy History of coronary angiogram History of resection of large bowel History of colonoscopy History of rotator cuff surgery Family History (Updated 12/10/23 @ 09:32 by Nikky Martinez CMA) Mother Abdominal aneurysm HTN (hypertension) Social History (Updated 01/01/24 @ 09:28 by Johana Car PA-C) Household Members: Spouse Housing: Apartment Alcohol intake: current Alcohol intake frequency: holidays/special occasions only Patient Tobacco Use Status: Current everyday Tobacco user Tobacco use type: Cigarette Cigarette Packs Per Day: 0.5 Cigarettes Per Day: 8 Years Smoked: (onset 11yo, 1ppd x 52yrs, now 1/4-1/2ppd - 40+pyh) e-Cigarette/Vaping Use: Never Used service: No Current occupational status: retired Cognitive needs: No Hearing needs: No Vision needs: No Questionnaire PHQ-9 Over the last 2 weeks, how often have you been bothered by any of the following problems? 1. Little interest or pleasure in doing things: several days 2. Feeling down, depressed, or hopeless: not at all 3. Trouble falling or staying asleep, or sleeping too much: more than half the days 4. Feeling tired or having little energy: several days 5. Poor appetite or overeating: several days 6. Feeling bad about yourself - or that you are a failure or have let yourself or your family down: not at all 7. Trouble concentrating on things, such as reading the newspaper or watching television: not at all 8. Moving or speaking so slowly that other people could have noticed. Or the opposite - being so fidgety or restless that you have been moving around a lot more than usual: not at all 9. Thoughts that you would be better off or of hurting yourself in some way: not at all Total score: 5 Depression Screening Interpretation: Positive Depression Screening Follow-up: Existing condition and In treatment Depression Screening Done: Yes 71307 - PHQ-9 Billing: Yes Source: Developed by Drs. Rickey Gordillo, Claudia Lund, Mike Chambers and colleagues, with an educational diane from [employer]. Thrive Questionnaire Date Thrive assessed: 09/11/23 KASSI-7 AMB Questionnaire KASSI-7 Date KASSI - 7 assessed: 01/04/24 Feeling nervous, anxious, or on edge: 3 = Nearly every day Not being able to stop or control worryin = Not at all Worrying too much about different things: 0 = Not at all Trouble relaxin = Several days Being so restless that it is hard to sit still: 2 = More than half the days Becoming easily annoyed or irritable: 0 = Not at all Feeling afraid as if something awful might happen: 0 = Not at all Total KASSI-7 score (0-4 normal; 5-9 mild; 10-14 moderate; 15-21 severe): 6 Source: Developed by Drs. Rickey Gordillo, Claudia Lund, Mike Chambers and colleagues, with an educational diane from [employer]. KASSI-7 Assessment Billing KASSI-7 Assessment Tool: KASSI-7 Assessment 17049 ACT Questionnaire In the past 4 weeks, how much of the time did your asthma keep you from getting as much done at work, school or at home?: None of the time During the past 4 weeks, how often have you had shortness of breath?: 1-2 times a week During the past 4 weeks, how often did your asthma symptoms wake you up at night or earlier than usual in the morning?: Not at all During the past 4 weeks, how often have you had to use your rescue inhaler or nebulizer medication?: More than 3 times per day How would you rate your asthma control during the past 4 weeks?: Somewhat controlled Score: 18 Review of Systems Const Details: Const Denies chills, Denies fatigue, Denies fever(s), Denies headache(s) and Denies weakness ENT Denies dizziness and Denies headache(s) Card Denies chest pain, Denies lightheadedness, Denies dyspnea and Denies other ( Palpitations) Resp Denies cough, Denies dyspnea, Denies wheezing and Denies other ( shortness of breath) GI Denies abdominal pain, Denies melena, Denies hematochezia, Denies change in bowel habits, Denies dyspepsia and Denies nausea Denies hematuria and Denies dysuria Musc Denies abnormal gait, Denies myalgias, Denies arthralgias, Denies numbness and Denies tingling Skin/Breast Denies rash, Denies unusual bruising and Denies wounds Neuro Denies abnormal gait, Denies dizziness, Denies headache(s), Denies memory loss, Denies numbness, Denies Sensory deficit (Neuro), Denies tingling and Denies weakness Psych Denies anxiety, Denies depression, Denies memory loss Endo Denies cold intolerance, Denies fatigue, Denies heat intolerance, Denies polydipsia and Denies polyuria Aller/Immun Denies wheezing Physical exam (Primary Care) Vital Signs: Last Vital Signs Temp 97.4 F 01/04/24 10:52 Pulse 72 01/04/24 10:52 Resp 16 01/04/24 10:52 BP 178/88 H 01/04/24 10:53 Pulse Ox 97 01/04/24 10:52 Oxygen Delivery Method Room Air 01/04/24 10:52 BMI result Body Mass Index 32.6 Tobacco/Smoking Status: Tobacco use Status Tobacco use date assessed 01/04/24 01/04/24 10:50 Patient Tobacco Use Status Current everyday Tobacco 01/04/24 10:42 Tobacco use type Cigarette 01/04/24 10:42 e-Cigarette/Vaping Use Never Used 01/04/24 10:42 PHQ-9: PHQ-9 Score PHQ-9: Total score 5 01/04/24 10:56 Depression Screening Interpretation: Positive Depression Screening Follow-up: Existing condition and In treatment Thrive Assessment: Date of Thrive Assessment Date Thrive assessed 09/11/23 01/04/24 10:42 Const Other: General: no acute distress and well developed Nutritional Appearance: well nourished Orientation/consciousness: patient oriented x3 HENMT Head: Yes normocephalic and Yes atraumatic Eyes General: appearance normal, both eyes and all related structures Pupils: Equal, round and reactive pupils present EOM: EOMs intact bilaterally Resp Effort & Inspection: normal respiratory effort Auscultation: clear to auscultation bilaterally Cardio Rate: regular rate Rhythm: regular rhythm Heart sounds: S1 normal heart sound present, S2 normal heart sound present, no gallops, no murmurs and no rubs GI Palpation (GI): No Abdominal aortic bruit present, Soft to palpation, nontender, No hepatosplenomegaly present and No Rebound tenderness present Auscultation: normal bowel sounds General: Yes no CVA tenderness Back/Spine/Pelvis Back: no CVA tenderness Cervical Spine: cervical ROM normal and No Cervical spine tenderness Thoracic/Lumbar Spine: thoraco-lumbar ROM normal, No pain with thoraco-lumbar ROM, No thoracic spinal tenderness and No lumbar spinal tenderness Extrem General: Yes normal to inspection, No edema and No calf tenderness. Moderate nonpitting edema to his lower legs and ankles Skin General: warm and dry. Normal skin color. Normal skin turgor Neuro General: patient oriented x3, gait normal and no focal neuro deficit Cranial nerves: Yes Equal, round and reactive pupils present Cognition (Neuro): normal cognition Gait exam (Neuro): Normal gait present Sensory Exam: No Sensory deficit (Neuro) Psych Appearance: grossly normal Affect: normal affect Attitude: cooperative Thought process: Normal thought process present Assessment and Plan Assessment & Plan (1) HTN (hypertension): Code(s): I10 - Essential (primary) hypertension Plan: Resting blood pressure is 170/90, above goal of less than 130/80 Will start furosemide 10 mg twice daily. Advised to take as prescribed. Instructed on the risks, benefits, and potential adverse reactions of the medication Continue to take amlodipine, lisinopril, and metoprolol as prescribed Follow-up in 2 weeks or sooner with symptoms or concerns Verbalized understanding and agreed with the treatment plan (2) Anxiety and depression: Code(s): F41.9 - Anxiety disorder, unspecified; F32.A - Depression, unspecified Plan: His sleep, anxiety, and depressive symptoms have significantly improved PHQ-9 and KASSI-7 scores revealed mild depression and anxiety respectively Continue current treatment regimen Routine exercise encouraged Return with symptoms or concerns Verbalized understanding and agreed with the treatment plan (3) Insomnia: Code(s): G47.00 - Insomnia, unspecified Plan: Plan as above (4) Mild anemia: Code(s): D64.9 - Anemia, unspecified Plan: He had significantly low RBC and H&H following complaints of hematochezia. He was admitted and treated at [facility] for GI bleed. He noted that he received 2 units of PRBCs and discharged home after 24 hours RBC and H&H have since improved. Recent RBC and H&H levels on 12/11/2023 were 3.88 and 10.3/33.5 respectively No recent blood in his stool Will recheck CBC and make changes as needed. May referred to hematology/oncology if H&H decreases from current He has a follow-up appointment with [facility] [place] gastroenterology for a colonoscopy in early February Orders: Orders Complete Blood Count no Diff Today D64.9 - Anemia, unspecified Medications: New furosemide 20 mg PO DAILY 30 days 30 tabs 2RF Coding Level of Care Code Est Pt Level 4 (00969) Diagnoses HTN (hypertension) I10 Anxiety and depression F41.9; F32.A Insomnia G47.00 Mild anemia D64.9 Additional Codes KASSI-7 Assessment Billing - KASSI-7 Assessment Tool: KASSI-7 Assessment 08215 ([id number])
[2024-01-04 10:52] VITALS: BP 178/88; PULSE 72; RESP 16; TEMP 36.3; O2SAT 97; BMI 32.6
[2024-01-04 11:12] VITALS: BP 170/90; PULSE 80
== END 2024-01-04 11:23 | disposition home or self-care (01) ==
PROVIDERS: PCP Nurse Practitioner Family; Visit Provider Nurse Practitioner Family
DX: I10 Essential (primary) hypertension (principal); F41.9 Anxiety disorder, unspecified; F32.A Depression, unspecified; G47.00 Insomnia, unspecified; D64.9 Anemia, unspecified

== ENCOUNTER → 2024-01-04 10:36 | Outpatient (BNVA) | payer OTHER, SELFPAY | PROVIDERS: PCP Nurse Practitioner Family; Visit Provider Nurse Practitioner Family | DX: I10 Essential (primary) hypertension (principal); R60.0 Localized edema; F41.9 Anxiety disorder, unspecified; F32.A Depression, unspecified; G47.00 Insomnia, unspecified; D64.9 Anemia, unspecified | CPT/HCPCS: 99212 ==

== ENCOUNTER 2024-01-04 11:28 | Outpatient (REF) | payer OTHER, SELFPAY ==
[2024-01-04 14:40] LABS: Hematocrit 39.3 % (42.0-52.0); Hemoglobin 11.9 g/dl (14.0-18.0); Mean Corpuscular HGB Conc 30.3 g/dl (31.0-36.0); Mean Corpuscular Hemoglobin 24.4 pg (27.0-33.0); Mean Corpuscular Volume 80.7 fL (80.0-98.0); Mean Platelet Volume 9.7 fL (9.4-12.4); Platelet Count 277 X10*3/uL (160-400); Red Blood Count 4.87 X10*6/uL (4.60-5.80); Red Cell Distribution Width 15.9 % (11.0-16.0); White Blood Count 8.8 X10*3/uL (4.8-10.8)
== END 2024-01-04 11:29 | disposition home or self-care (01) ==
LOC: HO.WFDLDS 11:28
PROVIDERS: Visit Provider Nurse Practitioner Family
DX: D64.9 Anemia, unspecified (principal)
CPT/HCPCS: 36415; 85027; 99212

== ENCOUNTER 2024-01-06 14:57 | Outpatient (REF) | payer OTHER, SELFPAY ==
[2024-01-06 17:49] LABS: Hematocrit 36.7 % (42.0-52.0); Immature Retic Fraction 32.2 % (2.3-13.4); Mean Corpuscular Hemoglobin 24.1 pg (27.0-33.0); Mean Corpuscular Volume 80.3 fL (80.0-98.0); Mean Platelet Volume 9.8 fL (9.4-12.4); Platelet Count 268 X10*3/uL (160-400); Red Blood Count 4.57 X10*6/uL (4.60-5.80); Red Cell Distribution Width 16.1 % (11.0-16.0); Retic HGB Equivalent 23.9 pg (30.0-35.0); Reticulocyte Percent 1.5 % (0.5-1.8); Reticulocytes Absolute 0.067 X10*6/uL (0.026-0.095); White Blood Count 8.4 X10*3/uL (4.8-10.8)
[2024-01-06 18:07] LABS: Iron 25 mcg/dL (45-160); Percent Iron Saturation 7 % (15-50); Total Iron Binding Capacity 354 mcg/dL (228-428); Unsaturated Iron Binding 329 ug/dL
[2024-01-06 18:23] LABS: Ferritin 40 ng/mL (20-250)
== END 2024-01-06 14:58 | disposition home or self-care (01) ==
LOC: HO.WFDLDS 14:57
PROVIDERS: Visit Provider Nurse Practitioner Family
DX: D64.9 Anemia, unspecified (principal); K92.2 Gastrointestinal hemorrhage, unspecified
CPT/HCPCS: 36415; 82728; 83540; 85027; 85045

== ENCOUNTER → 2024-01-11 10:21 | Outpatient (REF) | payer OTHER, SELFPAY ==
--- NOTE | 2024-01-11 10:24 | CA_ITS ---
Transthoracic Echocardiogram Patient (Last, First, Middle): Slava Castano J Gender: Male Date of : 1960 Age: 63 Procedure Date: 01/11/2024 Procedure Type: Transthoracic Echocardiogram Location: OP Height: 182.88 cm Weight: 105.69 kg BSA: 2.27 m2 Heart Rate: bpm BP: 142 / 84 mmHg [employer] Repairer: LOUIS Referring MD: Jesus Alberto Santana MD Symptoms: I25.10 - Atherosclerotic heart disease of [place] coronary artery without... Study Quality: Adequate ECG Rhythm: Sinus Conclusions: - The left ventricular systolic function is normal. The calculated ejection fraction is 57% by biplane method. - Severe concentric left ventricular hypertrophy, more prominent at the septum. - The basal inferior segment is akinetic. - No obvious valvular pathology seen on this study. Findings Procedure Information Contrast agent, definity, is being given per protocol without apparent complications. Left Ventricle Normal left ventricular cavity size. There is severely increased left ventricular wall thickness. The left ventricular systolic function is normal. The calculated ejection fraction is 57% by biplane method. Evidence suggests grade I (mild) diastolic dysfunction. Severe concentric left ventricular hypertrophy, more prominent at the septum. LV peak GLS -12.2%. Wall Motion Rest Echo Findings The basal inferior segment is akinetic. Right Ventricle Mildly increased right ventricular cavity size. There is normal right ventricular systolic function. Atria The left atrium is moderately dilated. The right atrium is normal in size. Aortic Valve There is a normal trileaflet aortic valve. There is mild calcification of the aortic valve. There is no aortic valve stenosis. There is no aortic valve regurgitation. Mitral Valve The mitral valve appears normal. There is trace mitral valve regurgitation. There is no mitral valve stenosis. Pulmonic Valve The pulmonic valve is likely normal. Tricuspid Valve There is trace tricuspid valve regurgitation. There is no evidence of pulmonary hypertension. Great Vessels There is mild dilatation of the ascending aorta measuring 3.90 cm. Venous The inferior vena cava is normal in size and collapses greater than 50% with inspiration. Pericardium/Pleural There is no evidence of pericardial effusion. Prior Study Comparison No prior study available for comparison. Recommendations, Care & Conclusions No obvious valvular pathology seen on this study. Measurements 2D Linear Measurements IVSd: 2.02 0.6-0.9/0.6-1.0 cm LVIDd: 4.83 3.9-5.3/4.2-5.9 cm LVIDd Index: 2.13 2.4-3.2/2.2-3.1 cm/m2 LVIDs: 4.34 2.0-3.6 cm LVPWd: 1.27 0.7-1.1 cm LA Diam: 4.90 2.7-3.8/3.0-4.0 cm LAIDs Index: 2.16 1.5-2.3 cm/m2 LV Mass: 439.62 67-162/88-224 g LV Mass Index: 193.66 43-95/49-115 g/m2 LVOT Diam: 2.30 3.0+(-)1.3 cm 2D Systolic Function EF 4C: 60.80 >55% EF 2C: 52.30 >55% EF BiP: 57.20 >55% Mitral Valve MV Pk E: 0.38 MV PK A: 0.65 MV Decel Time: 296.00 E/A: 0.60 E'Lateral: 2.07 E'Medial: 2.39 E/E' Med: 15.90 E/E' Lat: 18.40 PHT: 87.00 MVA PHT: 2.53 Decel [place]: 1.29 Aortic Valve AoV Pk Aman: 1.36 AoV Mn Aman: 0.91 AoV VTI: 0.28 AoV Pk Grad: 7.00 Aov Mn Grad: 4.00 MARIVEL Cont.VTI: 2.69 LVOT LVOT Pk Aman: 0.95 LVOT Mn Aman: 0.59 LVOT VTI: 0.18 LVOT Pk Grad: 4.00 LVOT Mn Grad: 2.00 LVOT Diam: 2.30 LVOT Area: 4.15 Diastolic Function MV Pk E: 0.38 MV Pk A: 0.65 E/A: 0.60 E'Medial: 2.39 E/E' Med: 15.90 E' Laterial: 2.07 E/E' Lat: 18.40 Right Ventricle TAPSE (mm): 21.40 TVS' Aman: 17.20 Tricuspid Valve RA Press: 3.00 Great Vessels Aorta Sinus of Valsalva: 4.21 2.0-3.[address] [place]: 3.32 1.7-3.4 cm Ao Asc: 3.90 2.1-3.4 cm Updated in Other Vendor System with Status of Final Jesus Alberto Santana MD electronically signed on 01/12/2024 11:18:48 AM with status of Final
== END ==
LOC: HO.CARD 10:21
PROVIDERS: PCP Nurse Practitioner Family; Visit Provider Internal Medicine
DX: I25.10 Atherosclerotic heart disease of native coronary artery without angina pectoris (principal); I21.4 Non-ST elevation (NSTEMI) myocardial infarction
CPT/HCPCS: 93306; 93356; Q9957

== ENCOUNTER → 2024-01-11 10:24 | Outpatient (BNV) | payer OTHER, SELFPAY | PROVIDERS: PCP Nurse Practitioner Family; Visit Provider Internal Medicine | DX: I42.2 Other hypertrophic cardiomyopathy (principal); R93.1 Abnormal findings on diagnostic imaging of heart and coronary circulation | CPT/HCPCS: 93306; 93356 ==

== ENCOUNTER 2024-01-19 18:14 | Outpatient (REF) | payer OTHER, SELFPAY ==
--- NOTE | ~2024-01-19 | MR_ITS ---
EXAMINATION: MR CERVICAL SPINE WITHOUT CONTRAST CLINICAL INFORMATION: Tremor. COMPARISON: Cervical spine MRI from 01/01/2022. TECHNIQUE: MRI of the cervical spine was obtained using routine sequences without contrast. FINDINGS: Mild right convex curvature of the cervical spine. Moderate left convex curvature of the visualized upper thoracic spine. Straightening of the normal cervical lordosis. Advanced degenerative disc disease at C6-C7. Moderate degenerative disc disease at all additional levels. Associated mixed Modic type discogenic endplate changes including Modic type I discogenic edema from C3-T1. Mild marrow edema within the posterior elements of C3-C5 consistent with degenerative stress reaction. No additional suspicious marrow edema. The vertebral body heights are well-maintained. No demonstrated spinal cord signal abnormalities. Limited evaluation of the soft tissues of the neck without demonstrated abnormalities. The flow voids of the major cervical vessels are maintained. Normal appearance of the cervicomedullary junction and visualized posterior fossa. SPINAL LEVELS: C2-C3: Minimal disc-osteophyte complex. There is mild bilateral uncovertebral joint arthropathy. There is moderate left and mild right facet joint arthropathy. There is moderate left and mild right neural foraminal stenosis. There is no spinal canal stenosis. C3-C4: Moderate disc-osteophyte complex. There is moderate bilateral uncovertebral joint arthropathy. There is severe right and moderate left facet joint arthropathy. There is severe bilateral neural foraminal stenosis. There is moderate spinal canal stenosis. C4-C5: Moderate disc-osteophyte complex. There is moderate left and mild right uncovertebral joint arthropathy. There is severe left and mild right facet joint arthropathy. There is severe left and mild right neural foraminal stenosis. There is mild to moderate spinal canal stenosis. C5-C6: Mild disc-osteophyte complex. There is moderate left and mild right uncovertebral joint arthropathy. There is severe left and mild right facet joint arthropathy. There is moderate left and mild right neural foraminal stenosis. There is no spinal canal stenosis. C6-C7: Moderate disc-osteophyte complex. There is moderate left and mild right uncovertebral joint arthropathy. There is mild bilateral facet joint arthropathy. There is severe left and no right neural foraminal stenosis. There is no overt spinal canal stenosis. C7-T1: Mild disc-osteophyte complex. There is mild left and no right uncovertebral joint arthropathy. There is severe left and moderate right facet joint arthropathy. There is moderate left and mild right neural foraminal stenosis. There is no spinal canal stenosis. MR/MR cervical spine wo con IMPRESSION: Moderate to advanced multilevel degenerative spondyloarthropathy of the cervical spine as described in detail above. Most notably, there are mild to moderate spinal canal stenoses at C3-C4 and C4-C5. Moderate to severe neural foraminal stenoses from C2-T1. Overall, degenerative changes appear mildly progressed compared to 2021. Electronically signed by: Tony Brantley DO 02/16/2024 09:29 AM EDT
== END 2024-01-19 18:15 | disposition home or self-care (01) ==
LOC: HO.MRI 18:14
PROVIDERS: PCP Nurse Practitioner Family; Visit Provider Neurological Surgery
DX: R25.1 Tremor, unspecified (principal)
CPT/HCPCS: 72141

== ENCOUNTER 2024-01-21 13:16 | Outpatient (AMB) | payer OTHER, SELFPAY ==
[2024-01-21 13:19] VITALS: BP 176/80; PULSE 80; BMI 32.8
--- NOTE | 2024-01-21 13:19 | A.OFFVIS_ITS ---
Vital Signs 01/21/24 13:19 Height 6 ft Weight 241 lb 10.026 oz BMI 32.8 BP 176/80 H Blood Pressure Location Lt brachial Position Sitting Pulse 80 Pulse Source Pulse Oximeter Intake Visit Reasons: 4-6 wk follow up [employer] Supervisor Required: No Accompanied by: Self / Same As Patient Allergies cat dander Allergy (Intermediate, Verified 01/04/24 11:04) Itchy Eyes Medication List - Last Reconciled 01/21/24 by Jesus Alberto Santana MD albuterol sulfate 90 mcg/actuation 1 - 2 puffs inhalation Q4-6H PRN amlodipine 10 mg PO DAILY aspirin 81 mg PO DAILY atorvastatin 80 mg PO DAILY bupropion HCl XL 150 mg PO QAM buspirone 15 mg PO TID 30 days ferrous sulfate 325 mg PO BID 30 days furosemide 20 mg PO DAILY 30 days gabapentin 800 mg PO TID 30 days lisinopril 40 mg PO DAILY metformin 1,000 mg PO BID metoprolol succinate ER 100 mg PO DAILY quetiapine (Seroquel) 25 mg PO BEDTIME 30 days HPI Comments Details: Slava returns for follow-up. He was recently seen in consultation regarding coronary disease. Previously, going to [facility]. Per last cardiology note from [facility], he has a chronically occluded PDA and 60-70% lesion in the mid RCA. He states he does not have any complaints like angina or shortness of breath. Recently, he was admitted for GI bleed to [facility]. It seems he got couple of blood transfusions and then endoscopy and got discharged. Troponins checked that time were abnormal suggestive of a type 2 NSTEMI. He states he does not really have any complaints like angina. He states he feels fine. Blood pressure is high today as well as recent visits. He states this happens because he does not take his meds in the morning. [facility] Medical History (Updated 01/07/24 @ 08:05 by Linda Howe CNP) Atherosclerotic cardiovascular disease History of [place] (myocardial infarction) Thoracic aortic aneurysm HTN (hypertension) Type 2 diabetes mellitus Nicotine dependence, cigarettes, uncomplicated History of GI bleed History of blood transfusion History of diverticulitis of colon Enlarged prostate Lumbar spondylosis Lumbar radiculopathy Shoulder pain, left Surgical History History of tonsillectomy History of coronary angiogram History of resection of large bowel History of colonoscopy History of rotator cuff surgery Family History Mother Abdominal aneurysm HTN (hypertension) Social History (Updated 01/21/24 @ 13:23 by Nikky Martinez CMA) Household Members: Spouse Housing: Apartment Alcohol intake: former Patient Tobacco Use Status: Current everyday Tobacco user Tobacco use type: Cigarette Cigarette Packs Per Day: 0.5 Cigarettes Per Day: 8 Years Smoked: (onset 11yo, 1ppd x 52yrs, now 1/4-1/2ppd - 40+pyh) e-Cigarette/Vaping Use: Never Used service: No Current occupational status: retired Cognitive needs: No Hearing needs: No Vision needs: No Review of Systems Const Denies chills, Denies fatigue, Denies fever(s), Denies weight gain and Denies weight loss ENT Denies dizziness Card Denies chest pain, Denies leg edema, Denies lightheadedness, Denies palpitations, Reports dyspnea on exertion, Denies orthopnea and Denies other Resp Denies cough and Reports dyspnea on exertion GI Denies hematochezia and Denies change in stool character Musc Denies abnormal gait, Denies muscle weakness, Denies numbness, Denies radiating pain into limb and Denies tingling Neuro Denies abnormal gait, Denies dizziness, Denies numbness and Denies tingling Endo Denies fatigue and Denies palpitations Physical Exam Vital Signs: Last Vital Signs Pulse 80 01/21/24 13:19 BP 176/80 H 01/21/24 13:19 BMI result Body Mass Index 32.8 Const General: comfortable and no acute distress Orientation/consciousness: patient oriented x3 HEENT Other: Unremarkable Head: Yes normal to inspection Neck Neck: Yes normal visual inspection Chest Chest palpation & inspection: normal inspection of the chest Resp Auscultation: clear to auscultation bilaterally Cardio Palpation: normal PMI Heart sounds: S1 normal heart sound present, S2 normal heart sound present, no gallops, no murmurs and no rubs GI Palpation (GI): Soft to palpation Back/Spine/Pelvis Other: unremarkable Skin General skin exam: no rashes or lesions noted Neuro General: patient oriented x3 Extrem General: Yes normal to inspection Psych Mental Status: mental status grossly normal Assessment & Plan Assessment & Plan (1) NSTEMI (non-ST elevated myocardial infarction): Code(s): I21.4 - Non-ST elevation (NSTEMI) myocardial infarction Category: Medical (2) Atherosclerotic cardiovascular disease: Code(s): I25.10 - Atherosclerotic heart disease of [place] coronary artery without angina pectoris Category: Medical (3) HTN (hypertension): Code(s): I10 - Essential (primary) hypertension Category: Medical Plan Per last cardiology note, chronically occluded PDA and 60-70% lesion in the mid RCA. Echocardiogram from 2021-LVEF 50-55%. Mid to apical anterolateral wall hypokinetic. In the recent echocardiogram, LVEF 57%. Severe concentric left ventricular hypertrophy. Basal inferior akinesis. Overall, known troponin elevation in the setting of pre-existing CAD. Seems like demand related NSTEMI. He also has poorly controlled hypertension but he states he did not take his meds today. He said the same thing last time as well. Hence question of compliance as well. We will stop his metoprolol and switch him to carvedilol. Advised him to be as compliant as possible. He understands. We will plan on getting a stress perfusion study for further evaluation. Follow-up after the above. Orders: Orders NM cardiolite stress test Today I21.4 - Non-ST elevation (NSTEMI) myocardial infarction, R07.2 - Precordial pain CA stress test Today I21.4 - Non-ST elevation (NSTEMI) myocardial infarction, R07.2 - Precordial pain Medications: New carvedilol (Coreg) must administer with a meal/food 25 mg PO BID 180 tabs 3RF 90 days Coding Level of Care Code Est Pt Level 4 (88809) Diagnoses NSTEMI (non-ST elevated myocardial infarction) I21.4 Atherosclerotic cardiovascular disease I25.10 HTN (hypertension) I10
== END 2024-01-21 13:35 | disposition home or self-care (01) ==
PROVIDERS: PCP Nurse Practitioner Family; Visit Provider Internal Medicine
DX: I21.4 Non-ST elevation (NSTEMI) myocardial infarction (principal); I25.10 Atherosclerotic heart disease of native coronary artery without angina pectoris; I10 Essential (primary) hypertension
CPT/HCPCS: 99214

== ENCOUNTER → 2024-01-21 13:16 | Outpatient (BNVA) | payer OTHER, SELFPAY | PROVIDERS: PCP Nurse Practitioner Family; Visit Provider Internal Medicine | DX: I21.4 Non-ST elevation (NSTEMI) myocardial infarction (principal); I25.10 Atherosclerotic heart disease of native coronary artery without angina pectoris; I10 Essential (primary) hypertension | CPT/HCPCS: 99212 ==

== ENCOUNTER 2024-01-29 14:14 | Outpatient (AMB) | payer OTHER, SELFPAY ==
--- NOTE | 2024-01-29 14:41 | HO.SPINEOV ---
Intake Visit Reasons: MRI follow up Intake Note: Mr. Castano is here today to F/u on the results of his MRI Airline Security Representative Required: No Allergies cat dander Allergy (Intermediate, Verified 01/04/24 11:04) Itchy Eyes Assessment & Plan Assessment & Plan (1) Cervical radiculopathy at C7: Code(s): M54.12 - Radiculopathy, cervical region Category: Medical Plan Dear colleague On 02/29/2024 I saw for follow-up Slava Castano after obtaining an MRI of the cervical spine. I originally saw him for intermittent left leg tremors and pain with MRI showing a disc herniation compressing the left L5 nerve. I am not convinced that a lumbar microdiskectomy he is going to alleviate the symptoms. Today he states that he is in severe neck pain on the left-sided radiates down his left arm towards the elbow and dorsum of his lower arm. He is having these symptoms for quite a while but recently they increase after a fall. He states that the pain is 8/10. He can only take Tylenol for pain control is was recently diagnosed with a gastric ulcer and he was just admitted for 5 days cause it bled. On exam, he is in agony. He is holding his arm in a flexed position. Spurling test is positive radiating pain in his left arm. No neurological deficits for motor or sensory. MRI of the cervical spine shows severe foraminal stenosis at C4, C5 and C7. Clinically this patient is suffering from a C7 radiculopathy. I offered him an anterior diskectomy and fusion. He will obtain surgical clearance from his primary care physician. He is scheduled to undergo an uppe endoscopy on February 22. I scheduled him for March 03. Thank you for allowing me take care of this patient. Do not hesitate to to call me with any questions or concerns. I spent 30 minutes in his consult reviewing imaging and discussing plan of care. Samy Kerr MD, PhD Spine Fellowship Trained Neurosurgeon Director, [facility] Coding Level of Care Code Est Pt Level 4 (80404) Diagnoses Cervical radiculopathy at C7 M54.12
== END 2024-01-29 15:43 | disposition home or self-care (01) ==
PROVIDERS: PCP Nurse Practitioner Family; Visit Provider Neurological Surgery
DX: M54.12 Radiculopathy, cervical region (principal)
CPT/HCPCS: 99214

== ENCOUNTER → 2024-01-29 14:14 | Outpatient (BNVA) | payer OTHER, SELFPAY | PROVIDERS: PCP Nurse Practitioner Family; Visit Provider Neurological Surgery | DX: M54.12 Radiculopathy, cervical region (principal) | CPT/HCPCS: 99212 ==

== ENCOUNTER 2024-02-02 14:46 | Outpatient (AMB) | payer OTHER, SELFPAY ==
--- NOTE | 2024-02-02 15:24 | MHC.PC.OV ---
Vital Signs 02/02/24 15:32 Height 6 ft Weight 240 lb 2 oz BMI 32.6 BP 160/80 H Blood Pressure Location Lt brachial Position Sitting Respiration 16 Pulse 88 Pulse Source Pulse Oximeter Temp 97.9 F Temp Source Oral Pulse Oximetry (%) 96 Oxygen Delivery Method Room Air Intake Visit Reasons: HOSPITAL DISCHARGE FU Intake Note: patient here for hospital discharge follow up Job Honer Required: No Allergies cat dander Allergy (Intermediate, Verified 02/02/24 15:37) Itchy Eyes Medication List - Last Reconciled 02/02/24 by Linda Howe CNP albuterol sulfate 90 mcg/actuation 1 - 2 puffs inhalation Q4-6H PRN amlodipine 10 mg PO DAILY atorvastatin 80 mg PO DAILY bupropion HCl XL 150 mg PO QAM buspirone 15 mg PO TID 30 days carvedilol (Coreg) 25 mg PO BID 90 days furosemide 20 mg PO DAILY 30 days gabapentin 800 mg PO TID 30 days lisinopril 40 mg PO DAILY metformin 1,000 mg PO BID pantoprazole 40 mg PO BID quetiapine (Seroquel) 25 mg PO BEDTIME 30 days Tobacco use date assessed: 02/02/24 Fall risk assessment: 1 Fall in past year Last assessed Fall Risk: 02/02/24 Dental Screening Dental Screen Date: 01/04/24 HPI HPI Comments History of Present Illness Details 63-year-old male presents for TCM He was admitted at [facility] on 01/23/2024 to 01/27/2024. He was treated for GI bleed. His H/H and MCV on 01/27/2024 was 7.5/25.3 and 80.1 respectively. He was diagnosed with gastrointestinal hemorrhage and sent home on pantoprazole sodium 40 mg twice daily before meals. He was referred to [facility]. He brought the Transition of care record. However, his discharge summary is not available. The nurses have been trying to obtain his discharge summary from [facility] He notes on at around 10pm on 01/22/2024, he was having a bowel movement when he became dizzy and fell on the bathroom floor and started vomiting. He called his who found large amount of blood in his vomit and very dark blood in his stool. His called the ambulance and he was brought to [facility] ED. He notes that his his initial hemoglobin was 7.3. He received 1 units of PRBCs. Endoscopy revealed a large ulcer in his stomach. He notes he continues to have small amount of dark-red blood stools which are improving daily. He denies dyspnea, dizziness, fatigue, or weakness. He has a follow up appointment with [facility] on 02/23/2024. He notes that he stopped smoking the day of the incident on 01/23/2024 He admits to taking his medications as prescribed without adverse reactions [facility] Medical History (Updated 02/02/24 @ 15:56 by Linda Howe CNP) Atherosclerotic cardiovascular disease History of [place] (myocardial infarction) Thoracic aortic aneurysm HTN (hypertension) Type 2 diabetes mellitus Nicotine dependence, cigarettes, uncomplicated History of GI bleed History of blood transfusion History of diverticulitis of colon Enlarged prostate Lumbar spondylosis Lumbar radiculopathy Shoulder pain, left Surgical History History of tonsillectomy History of coronary angiogram History of resection of large bowel History of colonoscopy History of rotator cuff surgery Family History Mother Abdominal aneurysm HTN (hypertension) Social History (Updated 01/21/24 @ 13:23 by Nikky Martinez CMA) Household Members: Spouse Housing: Apartment Alcohol intake: former Patient Tobacco Use Status: Current everyday Tobacco user Tobacco use type: Cigarette Cigarette Packs Per Day: 0.5 Cigarettes Per Day: 8 Years Smoked: (onset 11yo, 1ppd x 52yrs, now 1/4-1/2ppd - 40+pyh) e-Cigarette/Vaping Use: Never Used service: No Current occupational status: retired Cognitive needs: No Hearing needs: No Vision needs: No Questionnaire PHQ-9 Over the last 2 weeks, how often have you been bothered by any of the following problems? 2. Feeling down, depressed, or hopeless: not at all 3. Trouble falling or staying asleep, or sleeping too much: not at all 4. Feeling tired or having little energy: not at all 5. Poor appetite or overeating: not at all 6. Feeling bad about yourself - or that you are a failure or have let yourself or your family down: not at all 7. Trouble concentrating on things, such as reading the newspaper or watching television: not at all 8. Moving or speaking so slowly that other people could have noticed. Or the opposite - being so fidgety or restless that you have been moving around a lot more than usual: not at all 9. Thoughts that you would be better off or of hurting yourself in some way: not at all Source: Developed by Drs. Rickey Gordillo, Claudia Lund, Mike Chambers and colleagues, with an educational diane from [employer]. Thrive Questionnaire Date Thrive assessed: 02/02/24 I am a: Patient What is your living situation today?: I have a steady place to live Within the past 12 months, did the food you bought not last and you didn't have the money to get more?: I choose not to answer this question Within the past 12 months, did you worry whether your food would run out before you got money to buy more?: I choose not to answer this question Do you have trouble paying for medicines?: I choose not to answer this question Do you have trouble getting transportation to medical appointments?: I choose not to answer this question Do you have trouble paying your heating and electricity bill?: No Do you have trouble taking care of your child, family member or friend?: I choose not to answer this question Do you have trouble with day-to-day activities such as bathing, preparing meals, shopping, managing finances, etc.?: No Are you currently unemployed and looking for a job?: No Are you interested in more education?: No Please select the resources that you would like help with: None Currently or been in a relationship where the following occur: I choose not to answer THRIVE Score: 0 AUDIT C Alcohol Use Questionnaire (AUDIT-C) 1. How often do you have a drink containing alcohol?: Never Total Score: 0 KASSI-7 AMB Questionnaire KASSI-7 Date KASSI - 7 assessed: 01/04/24 Source: Developed by Drs. Rickey Gordillo, Claudia Lund, Mike Chambers and colleagues, with an educational diane from [employer]. Review of Systems Const Details: Const Denies chills, Denies fatigue, Denies fever(s), Denies headache(s) and Denies weakness ENT Denies dizziness and Denies headache(s) Card Denies chest pain, Denies lightheadedness, Denies dyspnea and Denies other (Palpitations) Resp Denies cough, Denies dyspnea, Denies wheezing and Denies other ( shortness of breath) GI Denies abdominal pain, Denies melena, Denies hematochezia, Denies change in bowel habits, Denies dyspepsia and Denies nausea Denies hematuria and Denies dysuria Musc Denies abnormal gait, Denies myalgias, Denies arthralgias, Denies numbness and Denies tingling Skin/Breast Denies rash, Denies unusual bruising and Denies wounds Neuro Denies abnormal gait, Denies dizziness, Denies headache(s), Denies memory loss, Denies numbness, Denies Sensory deficit (Neuro), Denies tingling and Denies weakness Psych Denies anxiety, Denies depression, Denies memory loss Endo Denies cold intolerance, Denies fatigue, Denies heat intolerance, Denies polydipsia and Denies polyuria Aller/Immun Denies wheezing Physical exam (Primary Care) Vital Signs: Last Vital Signs Temp 97.9 F 02/02/24 15:32 Pulse 88 02/02/24 15:32 Resp 16 02/02/24 15:32 BP 160/80 H 02/02/24 15:32 Pulse Ox 96 02/02/24 15:32 Oxygen Delivery Method Room Air 02/02/24 15:32 BMI result Body Mass Index 32.6 Tobacco/Smoking Status: Tobacco use Status Tobacco use date assessed 02/02/24 02/02/24 15:33 Patient Tobacco Use Status Current everyday Tobacco 02/02/24 15:30 Tobacco use type Cigarette 02/02/24 15:30 e-Cigarette/Vaping Use Never Used 02/02/24 15:30 Thrive Assessment: Date of Thrive Assessment Date Thrive assessed 02/02/24 02/02/24 15:30 Currently or been in a relationship where the following occur: I choose not to answer Const Other: General: no acute distress and well developed Nutritional Appearance: well nourished Orientation/consciousness: patient oriented x3 HENMT Head: Yes normocephalic and Yes atraumatic Eyes General: appearance normal, both eyes and all related structures Pupils: Equal, round and reactive pupils present EOM: EOMs intact bilaterally Resp Effort & Inspection: normal respiratory effort Auscultation: clear to auscultation bilaterally Cardio Rate: regular rate Rhythm: regular rhythm Heart sounds: S1 normal heart sound present, S2 normal heart sound present, no gallops, no murmurs and no rubs GI Palpation (GI): No Abdominal aortic bruit present, Soft to palpation, nontender, No hepatosplenomegaly present and No Rebound tenderness present Auscultation: normal bowel sounds General: Yes no CVA tenderness Back/Spine/Pelvis Back: no CVA tenderness Extrem General: Yes normal to inspection, No edema and No calf tenderness Skin General: warm and dry. Normal skin color. Normal skin turgor Neuro General: patient oriented x3, gait normal and no focal neuro deficit Cranial nerves: Yes Equal, round and reactive pupils present Cognition (Neuro): normal cognition Gait exam (Neuro): Normal gait present Sensory Exam: No Sensory deficit (Neuro) Psych Appearance: grossly normal Affect: normal affect Attitude: cooperative Thought process: Normal thought process present Coding Level of Care Code TCM Mod MDM <= 7 Days Diagnoses GI bleeding K92.2 Anemia due to GI blood loss D50.0 HTN (hypertension) I10 Assessment & Plan Assessment & Plan (1) GI bleeding: Code(s): K92.2 - Gastrointestinal hemorrhage, unspecified Category: Medical Plan: Patient presents for hospital discharge follow-up. He was treated for gastrointestinal hemorrhage at [facility] between 01/23/2024 and 01/27/2024. His initial hemoglobin was 7.3. H&H before his discharge on 01/26 was 7.5/25.3. Endoscopy revealed stomach ulcer. He was discharged home on pantoprazole 40 mg twice daily and referred to Gastroenterology. He has a follow-up appointment with Gastroenterology early next month. He also has a colonoscopy scheduled with [facility] gastroenterology early next month. He has an appointment with [facility] oncology/hematology late next month. He continues to have dark-red bloody stools which are improving. No dyspnea, dizziness, fatigue, weakness. Encouraged to continue current treatment regimen Encouraged to continue to abstain from smoking which may worsen his stomach ulcer or results and new ulcers Adequate hydration encouraged Will CBC to monitor H&H levels Encouraged to follow-up with Gastroenterology as planned Note given for work as requested Return in 1 week or go to the ED with worsening or new symptoms Verbalized understanding and agreed with treatment plan (2) Anemia due to GI blood loss: Code(s): D50.0 - Iron deficiency anemia secondary to blood loss (chronic) Category: Medical Plan: Plan as above (3) HTN (hypertension): Code(s): I10 - Essential (primary) hypertension Category: Medical Plan: Resting blood pressure is 160/80, above goal of less than 130/80 Advised to continue to take lisinopril, amlodipine, and furosemide as prescribed Low-sodium diet encouraged Follow-up in a week Verbalized understanding and agreed with the plan Orders: Orders Complete Blood Count no Diff Today D50.0 - Iron deficiency anemia secondary to blood loss (chronic), K92.2 - Gastrointestinal hemorrhage, unspecified
[2024-02-02 15:32] VITALS: BP 160/80; PULSE 88; RESP 16; TEMP 36.6; O2SAT 96; BMI 32.6
== END 2024-02-02 15:55 | disposition home or self-care (01) ==
PROVIDERS: PCP Nurse Practitioner Family; Visit Provider Nurse Practitioner Family
DX: K92.2 Gastrointestinal hemorrhage, unspecified (principal); D50.0 Iron deficiency anemia secondary to blood loss (chronic); I10 Essential (primary) hypertension

== ENCOUNTER → 2024-02-02 14:46 | Outpatient (BNVA) | payer OTHER, SELFPAY | PROVIDERS: PCP Nurse Practitioner Family; Visit Provider Nurse Practitioner Family | DX: K92.2 Gastrointestinal hemorrhage, unspecified (principal); D50.0 Iron deficiency anemia secondary to blood loss (chronic); I10 Essential (primary) hypertension | CPT/HCPCS: 96127; 99212 ==

== ENCOUNTER 2024-02-02 16:09 | Outpatient (REF) | payer OTHER, SELFPAY ==
[2024-02-02 17:45] LABS: Hematocrit 30.1 % (42.0-52.0); Mean Corpuscular HGB Conc 29.9 g/dl (31.0-36.0); Mean Corpuscular Hemoglobin 23.6 pg (27.0-33.0); Mean Platelet Volume 9.3 fL (9.4-12.4); Platelet Count 343 X10*3/uL (160-400); Red Blood Count 3.81 X10*6/uL (4.60-5.80); Red Cell Distribution Width 16.5 % (11.0-16.0); White Blood Count 7.9 X10*3/uL (4.8-10.8)
== END 2024-02-02 16:10 | disposition home or self-care (01) ==
LOC: HO.WFDLDS 16:09
PROVIDERS: Visit Provider Nurse Practitioner Family
DX: D50.0 Iron deficiency anemia secondary to blood loss (chronic) (principal); K92.2 Gastrointestinal hemorrhage, unspecified
CPT/HCPCS: 36415; 85027

== ENCOUNTER 2024-02-08 09:34 | Outpatient (REF) | payer OTHER, SELFPAY ==
[2024-02-08 11:48] LABS: Hematocrit 29.8 % (42.0-52.0); Hemoglobin 8.8 g/dl (14.0-18.0); Mean Corpuscular HGB Conc 29.5 g/dl (31.0-36.0); Mean Corpuscular Hemoglobin 22.8 pg (27.0-33.0); Mean Corpuscular Volume 77.2 fL (80.0-98.0); Mean Platelet Volume 9.3 fL (9.4-12.4); Platelet Count 329 X10*3/uL (160-400); Red Blood Count 3.86 X10*6/uL (4.60-5.80); Red Cell Distribution Width 16.1 % (11.0-16.0)
[2024-02-08 12:47] LABS: Iron 18 mcg/dL (45-160); Percent Iron Saturation 5 % (15-50); Total Iron Binding Capacity 363 mcg/dL (228-428); Unsaturated Iron Binding 345 ug/dL
[2024-02-08 12:52] LABS: Ferritin 25 ng/mL (20-250)
[2024-02-08 12:59] LABS: Vitamin B12 334 pg/mL (200-900)
== END 2024-02-08 09:35 | disposition home or self-care (01) ==
LOC: HO.WFDLDS 09:34
PROVIDERS: Visit Provider Nurse Practitioner Family
DX: D50.0 Iron deficiency anemia secondary to blood loss (chronic) (principal)
CPT/HCPCS: 36415; 82607; 82728; 82746; 83540; 85027

== ENCOUNTER 2024-02-09 11:39 | Outpatient (AMB) | payer OTHER, SELFPAY ==
--- NOTE | 2024-02-09 11:45 | MHC.PC.OV ---
Vital Signs 02/09/24 11:53 02/09/24 12:39 Height 6 ft Weight 241 lb BMI 32.7 BP 138/76 120/70 Blood Pressure Location Rt brachial Lt brachial Position Sitting Sitting Respiration 16 Pulse 96 Pulse Source Pulse Oximeter Temp 97.6 F Temp Source Oral Pulse Oximetry (%) 97 Oxygen Delivery Method Room Air Intake Visit Reasons: 1 wk GI bleed, anemia, HTN Intake Note: patient here for follow up on GI bleeding, anemia, HTN. Aboriginal Ceremonial Celebrant Required: No Allergies cat dander Allergy (Intermediate, Verified 02/09/24 12:50) Itchy Eyes Medication List - Last Reconciled 02/09/24 by Linda Howe CNP albuterol sulfate 90 mcg/actuation 1 - 2 puffs inhalation Q4-6H PRN amlodipine 10 mg PO DAILY atorvastatin 80 mg PO DAILY bupropion HCl XL 150 mg PO QAM buspirone 15 mg PO TID 30 days carvedilol (Coreg) 25 mg PO BID 90 days ferrous sulfate 325 mg PO DAILY 30 days furosemide 20 mg PO DAILY 30 days gabapentin 800 mg PO TID 30 days lisinopril 40 mg PO DAILY metformin 1,000 mg PO BID pantoprazole 40 mg PO BID quetiapine (Seroquel) 25 mg PO BEDTIME 30 days Tobacco use date assessed: 02/09/24 Fall risk assessment: 1 Fall in past year Last assessed Fall Risk: 02/09/24 Dental Screening Dental Screen Date: 02/09/24 Did you have a dental visit in the last 12 months?: No Did you have a dental problem in the last 6 months where you did not have access to dental care?: No Was dental information given to patient?: Yes HPI HPI Comments History of Present Illness Details 63-year-old male presents for HTN and iron deficiency anemia follow up. His anemia is related to GI bleed He admits to taking his medications has prescribed without adverse reactions He has not smoked cigarette since 01/23/2024 He denies dyspnea, fatigue, weakness, or bloody stool He has a follow up appointment with [facility] on 02/23/2024 [facility] Medical History (Updated 02/02/24 @ 15:56 by Linda Howe CNP) Atherosclerotic cardiovascular disease History of DC (myocardial infarction) Thoracic aortic aneurysm HTN (hypertension) Type 2 diabetes mellitus Nicotine dependence, cigarettes, uncomplicated History of GI bleed History of blood transfusion History of diverticulitis of colon Enlarged prostate Lumbar spondylosis Lumbar radiculopathy Shoulder pain, left Surgical History History of tonsillectomy History of coronary angiogram History of resection of large bowel History of colonoscopy History of rotator cuff surgery Family History Mother Abdominal aneurysm HTN (hypertension) Social History (Updated 01/21/24 @ 13:23 by Nikky Martinez CMA) Household Members: Spouse Housing: Apartment Alcohol intake: former Patient Tobacco Use Status: Current everyday Tobacco user Tobacco use type: Cigarette Cigarette Packs Per Day: 0.5 Cigarettes Per Day: 8 Years Smoked: (onset 11yo, 1ppd x 52yrs, now 1/4-1/2ppd - 40+pyh) e-Cigarette/Vaping Use: Never Used service: No Current occupational status: retired Cognitive needs: No Hearing needs: No Vision needs: No Questionnaire Thrive Questionnaire Date Thrive assessed: 02/02/24 I am a: Patient What is your living situation today?: I have a steady place to live Within the past 12 months, did the food you bought not last and you didn't have the money to get more?: I choose not to answer this question Within the past 12 months, did you worry whether your food would run out before you got money to buy more?: I choose not to answer this question Do you have trouble paying for medicines?: I choose not to answer this question Do you have trouble getting transportation to medical appointments?: I choose not to answer this question Do you have trouble paying your heating and electricity bill?: No Do you have trouble taking care of your child, family member or friend?: I choose not to answer this question Do you have trouble with day-to-day activities such as bathing, preparing meals, shopping, managing finances, etc.?: No Are you currently unemployed and looking for a job?: No Are you interested in more education?: No Please select the resources that you would like help with: None Currently or been in a relationship where the following occur: I choose not to answer THRIVE Score: 0 KASSI-7 AMB Questionnaire KASSI-7 Date KASSI - 7 assessed: 01/04/24 Source: Developed by Drs. Rickey Gordillo, Claudia Lund, Mike Chambers and colleagues, with an educational diane from [employer] Review of Systems Const Details: Const Denies chills, Denies fatigue, Denies fever(s), Denies headache(s) and Denies weakness ENT Denies dizziness and Denies headache(s) Card Denies chest pain, Denies lightheadedness, Denies dyspnea and Denies other (Palpitations) Resp Denies cough, Denies dyspnea, Denies wheezing and Denies other ( shortness of breath) GI Denies abdominal pain, Denies melena, Denies hematochezia, Denies change in bowel habits, Denies dyspepsia and Denies nausea Denies hematuria and Denies dysuria Musc Denies abnormal gait, Denies myalgias, Denies arthralgias, Denies numbness and Denies tingling Skin/Breast Denies rash, Denies unusual bruising and Denies wounds Neuro Denies abnormal gait, Denies dizziness, Denies headache(s), Denies memory loss, Denies numbness, Denies Sensory deficit (Neuro), Denies tingling and Denies weakness Psych Denies anxiety, Denies depression, Denies memory loss Endo Denies cold intolerance, Denies fatigue, Denies heat intolerance, Denies polydipsia and Denies polyuria Aller/Immun Denies wheezing Physical exam (Primary Care) Vital Signs: Last Vital Signs Temp 97.6 F 02/09/24 11:53 Pulse 96 02/09/24 11:53 Resp 16 02/09/24 11:53 BP 138/76 02/09/24 11:53 Pulse Ox 97 02/09/24 11:53 Oxygen Delivery Method Room Air 02/09/24 11:53 BMI result Body Mass Index 32.7 Tobacco/Smoking Status: Tobacco use Status Tobacco use date assessed 02/09/24 02/09/24 11:52 Patient Tobacco Use Status Current everyday Tobacco 02/09/24 11:47 Tobacco use type Cigarette 02/09/24 11:47 e-Cigarette/Vaping Use Never Used 02/09/24 11:47 Thrive Assessment: Date of Thrive Assessment Date Thrive assessed 02/02/24 02/09/24 11:47 Currently or been in a relationship where the following occur: I choose not to answer Const Other: General: no acute distress and well developed Nutritional Appearance: well nourished Orientation/consciousness: patient oriented x3 [facility] Head: Yes normocephalic and Yes atraumatic Eyes General: appearance normal, both eyes and all related structures Pupils: Equal, round and reactive pupils present EOM: EOMs intact bilaterally Resp Effort & Inspection: normal respiratory effort Auscultation: clear to auscultation bilaterally Cardio Rate: regular rate Rhythm: regular rhythm Heart sounds: S1 normal heart sound present, S2 normal heart sound present, no gallops, no murmurs and no rubs GI Palpation (GI): No Abdominal aortic bruit present, Soft to palpation, nontender, No hepatosplenomegaly present and No Rebound tenderness present Auscultation: normal bowel sounds General: Yes no CVA tenderness Back/Spine/Pelvis Back: no CVA tenderness Extrem General: Yes normal to inspection, No edema and No calf tenderness Skin General: warm and dry. Normal skin color. Normal skin turgor Neuro General: patient oriented x3, gait normal and no focal neuro deficit Cranial nerves: Yes Equal, round and reactive pupils present Cognition (Neuro): normal cognition Gait exam (Neuro): Normal gait present Sensory Exam: No Sensory deficit (Neuro) Psych Appearance: grossly normal Affect: normal affect Attitude: cooperative Thought process: Normal thought process present Coding Level of Care Code Est Pt Level 4 (28096) Diagnoses HTN (hypertension) I10 Iron deficiency anemia D50.9 Anemia due to GI blood loss D50.0 Assessment & Plan Assessment & Plan (1) HTN (hypertension): Code(s): I10 - Essential (primary) hypertension Category: Medical Plan: Resting blood pressure is 120/70, within goal of less than 130/80 Continue current treatment regimen Low-sodium diet encouraged Follow-up in 1 month for hypertension and diabetes or sooner with symptoms or concerns Verbalized understanding and agreed with treatment plan (2) Iron deficiency anemia: Code(s): D50.9 - Iron deficiency anemia, unspecified Category: Medical Plan: Recent H&H is low, 8.8/29.8 (slightly lower than previous), iron level is low, 18, normal ferritin level His anemia is related to GI blood loss. However, he has not had any recent bloody stool. He has not smoked cigarette since 01/23/2024 Will order ferrous sulfate 325 mg daily. Advised to take as prescribed. Instructed on the risks, benefits, and potential adverse reactions of the medication Will recheck CBC in 1 week and make changes as needed Encouraged to continue to avoid smoking cigarettes He has a follow-up appointment with GI early next month Follow-up with symptoms or concerns Verbalized understanding and agreed with the plan (3) Anemia due to GI blood loss: Code(s): D50.0 - Iron deficiency anemia secondary to blood loss (chronic) Category: Medical Plan: Plan as above Orders: Orders Complete Blood Count no Diff Today D50.0 - Iron deficiency anemia secondary to blood loss (chronic), D50.9 - Iron deficiency anemia, unspecified Medications: New ferrous sulfate 325 mg PO DAILY 30 tabs 3RF 30 days
[2024-02-09 11:53] VITALS: BP 138/76; PULSE 96; RESP 16; TEMP 36.4; O2SAT 97; BMI 32.7
[2024-02-09 12:39] VITALS: BP 120/70
== END 2024-02-09 12:47 | disposition home or self-care (01) ==
PROVIDERS: PCP Nurse Practitioner Family; Visit Provider Nurse Practitioner Family
DX: I10 Essential (primary) hypertension (principal); D50.9 Iron deficiency anemia, unspecified; D50.0 Iron deficiency anemia secondary to blood loss (chronic)

== ENCOUNTER → 2024-02-09 11:39 | Outpatient (BNVA) | payer OTHER, SELFPAY | PROVIDERS: PCP Nurse Practitioner Family; Visit Provider Nurse Practitioner Family | DX: I10 Essential (primary) hypertension (principal); D50.0 Iron deficiency anemia secondary to blood loss (chronic); K92.2 Gastrointestinal hemorrhage, unspecified | CPT/HCPCS: 99212 ==

== ENCOUNTER 2024-02-16 09:53 | Outpatient (REF) | payer OTHER, SELFPAY ==
[2024-02-16 11:54] LABS: Hematocrit 30.3 % (42.0-52.0); Hemoglobin 8.8 g/dl (14.0-18.0); Mean Corpuscular Hemoglobin 22.9 pg (27.0-33.0); Mean Corpuscular Volume 78.7 fL (80.0-98.0); Mean Platelet Volume 9.4 fL (9.4-12.4); Platelet Count 248 X10*3/uL (160-400); Red Blood Count 3.85 X10*6/uL (4.60-5.80); Red Cell Distribution Width 16.6 % (11.0-16.0); White Blood Count 6.4 X10*3/uL (4.8-10.8)
[2024-02-16 12:19] LABS: Iron 17 mcg/dL (45-160); Percent Iron Saturation 5 % (15-50); Total Iron Binding Capacity 358 mcg/dL (228-428); Unsaturated Iron Binding 341 ug/dL
== END 2024-02-16 09:54 | disposition home or self-care (01) ==
LOC: HO.WFDLDS 09:53
PROVIDERS: Visit Provider Nurse Practitioner Family
DX: D50.9 Iron deficiency anemia, unspecified (principal)
CPT/HCPCS: 36415; 83540; 85027

== ENCOUNTER 2024-02-22 12:18 | Outpatient (AMB) | payer OTHER, SELFPAY ==
--- NOTE | 2024-02-22 12:28 | A.OFFPC_ITS ---
Vital Signs 02/22/24 12:37 Height 6 ft Weight 233 lb 8 oz BMI 31.7 BP 110/62 Blood Pressure Location Rt brachial Position Sitting Respiration 16 Pulse 79 Pulse Source Pulse Oximeter Temp 97.7 F Temp Source Oral Pulse Oximetry (%) 97 Oxygen Delivery Method Room Air Intake Visit Reasons: Anemia follow-up Intake Note: patient here for pre op, med review and labs Furnace Firer Required: No Allergies cat dander Allergy (Intermediate, Verified 02/22/24 12:42) Itchy Eyes Medication List - Last Reconciled 02/22/24 by Linda Howe CNP albuterol sulfate 90 mcg/actuation 1 - 2 puffs inhalation Q4-6H PRN amlodipine 10 mg PO DAILY atorvastatin 80 mg PO DAILY bupropion HCl XL 150 mg PO QAM buspirone 15 mg PO TID 30 days carvedilol (Coreg) 25 mg PO BID 90 days ferrous sulfate 325 mg PO BID 30 days furosemide 20 mg PO DAILY 30 days gabapentin 800 mg PO TID 30 days glipizide ER 5 mg PO DAILY 30 days lisinopril 40 mg PO DAILY metformin 1,000 mg (2 x 500 mg) PO BID 30 days pantoprazole 40 mg PO BID quetiapine (Seroquel) 25 mg PO BEDTIME 30 days Tobacco use date assessed: 02/22/24 Fall risk assessment: 2 + Falls in past year Last assessed Fall Risk: 02/22/24 Dental Screening Dental Screen Date: 02/22/24 Did you have a dental visit in the last 12 months?: Yes Did you have a dental problem in the last 6 months where you did not have access to dental care?: No Was dental information given to patient?: Patient has dentist HPI HPI Comments History of Present Illness Details 63-year-old male presents for iron defic iency anemia follow up He admits to taking his medications has prescribed without adverse reactions He has not smoked cigarette since 01/23/2024 He reports black diarrhea stools x 4 02/20/24 and 02/21/24. No recent dietary changes. He denies dyspnea, fatigue, or weakness. He has not had a bowel movement today His surgery appointment with [facility] neuro spine in the middle of this month was re scheduled to 03/31/2024 because he his awaiting cardiac stress test He reports chronic persistent left shoulder pain/tingling, numbness and intermittent left hip pain/tingling/numbness. He was told my ortho is hip from a pinched nerve. He had history of PT for his left hip pain without improvement. Gabapentin has not provide relief. No hip pain at this time He has a follow up appointment with [facility] tomorrow [facility]END[facility] TO [facility] Medical History (Updated 02/22/24 @ 13:05 by Linda Howe CNP) Atherosclerotic cardiovascular disease History of [place] (myocardial infarction) Thoracic aortic aneurysm HTN (hypertension) Type 2 diabetes mellitus Nicotine dependence, cigarettes, uncomplicated History of GI bleed History of blood transfusion History of diverticulitis of colon Enlarged prostate Lumbar spondylosis Lumbar radiculopathy Shoulder pain, left Surgical History History of tonsillectomy History of coronary angiogram History of resection of large bowel History of colonoscopy History of rotator cuff surgery Family History Mother Abdominal aneurysm HTN (hypertension) Social History (Updated 01/21/24 @ 13:23 by Nikky Martinez CMA) Household Members: Spouse Housing: Apartment Alcohol intake: former Patient Tobacco Use Status: Current everyday Tobacco user Tobacco use type: Cigarette Cigarette Packs Per Day: 0.5 Cigarettes Per Day: 8 Years Smoked: (onset 11yo, 1ppd x 52yrs, now 1/4-1/2ppd - 40+pyh) e-Cigarette/Vaping Use: Never Used service: No Current occupational status: retired Cognitive needs: No Hearing needs: No Vision needs: No Questionnaire Thrive Questionnaire Date Thrive assessed: 02/02/24 I am a: Patient What is your living situation today?: I have a steady place to live Within the past 12 months, did the food you bought not last and you didn't have the money to get more?: I choose not to answer this question Within the past 12 months, did you worry whether your food would run out before you got money to buy more?: I choose not to answer this question Do you have trouble paying for medicines?: I choose not to answer this question Do you have trouble getting transportation to medical appointments?: I choose not to answer this question Do you have trouble paying your heating and electricity bill?: No Do you have trouble taking care of your child, family member or friend?: I choose not to answer this question Do you have trouble with day-to-day activities such as bathing, preparing meals, shopping, managing finances, etc.?: No Are you currently unemployed and looking for a job?: No Are you interested in more education?: No Please select the resources that you would like help with: None Currently or been in a relationship where the following occur: I choose not to answer THRIVE Score: 0 AUDIT C Alcohol Use Questionnaire (AUDIT-C) 1. How often do you have a drink containing alcohol?: Never Total Score: 0 KASSI-7 AMB Questionnaire KASSI-7 Date KASSI - 7 assessed: 01/04/24 Source: Developed by Drs. Rickey Gordillo, Claudia Lund, Mike Chambers and colleagues, with an educational diane from [employer]. Review of Systems Const Details: Const Denies chills, Denies fatigue, Denies fever(s), Denies headache(s) and Denies weakness ENT Denies dizziness and Denies headache(s) Card Denies chest pain, Denies lightheadedness, Denies dyspnea and Denies other (Palpitations) Resp Denies cough, Denies dyspnea, Denies wheezing and Denies other ( shortness of breath) GI Denies abdominal pain, Denies melena, Denies hematochezia, Denies change in bowel habits, Denies dyspepsia and Denies nausea Denies hematuria and Denies dysuria Musc Reports as per HPI Skin/Breast Denies rash, Denies unusual bruising and Denies wounds Neuro Denies abnormal gait, Denies dizziness, Denies headache(s), Denies memory loss, Denies numbness, Denies Sensory deficit (Neuro), Denies tingling and Denies weakness Psych Denies anxiety, Denies depression, Denies memory loss Endo Denies cold intolerance, Denies fatigue, Denies heat intolerance, Denies polydipsia and Denies polyuria Aller/Immun Denies wheezing Physical exam (Primary Care) Vital Signs: Last Vital Signs Temp 97.7 F 02/22/24 12:37 Pulse 79 02/22/24 12:37 Resp 16 02/22/24 12:37 BP 110/62 02/22/24 12:37 Pulse Ox 97 02/22/24 12:37 Oxygen Delivery Method Room Air 02/22/24 12:37 BMI result Body Mass Index 31.7 Tobacco/Smoking Status: Tobacco use Status Tobacco use date assessed 02/22/24 02/22/24 12:38 Patient Tobacco Use Status Current everyday Tobacco 02/22/24 12:30 Tobacco use type Cigarette 02/22/24 12:30 e-Cigarette/Vaping Use Never Used 02/22/24 12:30 Thrive Assessment: Date of Thrive Assessment Date Thrive assessed 02/02/24 02/22/24 12:30 Currently or been in a relationship where the following occur: I choose not to answer Const Other: General: no acute distress and well developed Nutritional Appearance: well nourished Orientation/consciousness: patient oriented x3 HEN[facility] Head: Yes normocephalic and Yes atraumatic Eyes General: appearance normal, both eyes and all related structures Pupils: Equal, round and reactive pupils present EOM: EOMs intact bilaterally Resp Effort & Inspection: normal respiratory effort Auscultation: clear to auscultation bilaterally Cardio Rate: regular rate Rhythm: regular rhythm Heart sounds: S1 normal heart sound present, S2 normal heart sound present, no gallops, no murmurs and no rubs GI Palpation (GI): No Abdominal aortic bruit present, Soft to palpation, nontender, No hepatosplenomegaly present and No Rebound tenderness present Auscultation: normal bowel sounds General: Yes no CVA tenderness Back/Spine/Pelvis Back: no CVA tenderness Cervical Spine: cervical ROM normal and No Cervical spine tenderness Thoracic/Lumbar Spine: thoraco-lumbar ROM normal, No pain with thoraco-lumbar ROM, No thoracic spinal tenderness and No lumbar spinal tenderness Extrem General: Yes normal to inspection, No edema and No calf tenderness. Limited active and passive ROM of the left shoulder, no overt injury or trauma Skin General: warm and dry. Normal skin color. Normal skin turgor Neuro General: patient oriented x3, gait normal and no focal neuro deficit Cranial nerves: Yes Equal, round and reactive pupils present Cognition (Neuro): normal cognition Gait exam (Neuro): Normal gait present Sensory Exam: No Sensory deficit (Neuro) Psych Appearance: grossly normal Affect: normal affect Attitude: cooperative Thought process: Normal thought process present Coding Level of Care Code Est Pt Level 4 (04856) Complex EM visit Add On G2211 Diagnoses Iron deficiency anemia D50.9 Chronic left shoulder pain M25.512; G89.29 Chronic left hip pain M25.552; G89.29 Assessment & Plan Assessment & Plan (1) Iron deficiency anemia: Code(s): D50.9 - Iron deficiency anemia, unspecified Category: Medical Plan: Recent RBC and H&H on 02/16/2024 with no significant improvement, 3.85 and 8.8/30.3 respectively He had black stools x4 2 days ago; likely due to ferrous sulfate No dyspnea, fatigue, or weakness Continue to take ferrous sulfate as prescribed He will get CBC done today. Will review results and make changes as needed Encouraged to get CBC blood work done 2-3 days before his next visit Advised to follow-up in 2 weeks for anemia, hypertension, and diabetes, or sooner with symptoms or concerns Verbalized understanding and agreed with the treatment plan (2) Chronic left shoulder pain: Code(s): M25.512 - Pain in left shoulder; G89.29 - Other chronic pain Category: Medical Plan: Reports chronic persistent left shoulder pain/tingling, numbness and intermittent left hip pain/tingling/numbness. PT of his left hip pain did not provide improvement. Gabapentin has not provide relief. No hip pain at this time. His appointment with [facility] neuro spine has been postponed until March Limited active and passive ROM of the left shoulder, no overt injury or trauma Tramadol 50 mg twice daily as needed ordered. Advised to take as prescribed. Instructed on the risks, benefits, and potential adverse reactions of the medication Continue to take gabapentin as prescribed Warm/cool compresses encouraged Follow-up with worsening or new symptoms Verbalized understanding and agreed with the treatment plan (3) Chronic left hip pain: Code(s): M25.552 - Pain in left hip; G89.29 - Other chronic pain Category: Medical Plan: Plan as above Orders: Orders Complete Blood Count no Diff Today D50.9 - Iron deficiency anemia, unspecified Medications: New tramadol 50 mg PO BID PRN 60 tabs 0RF pain
[2024-02-22 12:37] VITALS: BP 110/62; PULSE 79; RESP 16; TEMP 36.5; O2SAT 97; BMI 31.7
== END 2024-02-22 13:09 | disposition home or self-care (01) ==
LOC: HO.HMCFM 12:19
PROVIDERS: PCP Nurse Practitioner Family; Visit Provider Nurse Practitioner Family
DX: D50.9 Iron deficiency anemia, unspecified (principal); M25.512 Pain in left shoulder; G89.29 Other chronic pain; M25.552 Pain in left hip

== ENCOUNTER → 2024-02-22 12:18 | Outpatient (BNVA) | payer OTHER, SELFPAY | PROVIDERS: PCP Nurse Practitioner Family; Visit Provider Nurse Practitioner Family ==

== ENCOUNTER 2024-02-22 13:03 | Outpatient (REF) | payer OTHER, SELFPAY ==
[2024-02-22 14:51] LABS: Hemoglobin 9.5 g/dl (14.0-18.0); Mean Corpuscular HGB Conc 28.8 g/dl (31.0-36.0); Mean Corpuscular Hemoglobin 22.7 pg (27.0-33.0); Mean Corpuscular Volume 78.8 fL (80.0-98.0); Mean Platelet Volume 9.2 fL (9.4-12.4); Platelet Count 305 X10*3/uL (160-400); Red Blood Count 4.19 X10*6/uL (4.60-5.80); Red Cell Distribution Width 18.9 % (11.0-16.0); White Blood Count 7.8 X10*3/uL (4.8-10.8)
== END 2024-02-22 13:04 | disposition home or self-care (01) ==
LOC: HO.WFDLDS 13:03
PROVIDERS: Visit Provider Nurse Practitioner Family
DX: D50.9 Iron deficiency anemia, unspecified (principal); G89.29 Other chronic pain; M25.512 Pain in left shoulder; M25.552 Pain in left hip
CPT/HCPCS: 36415; 85027; 99212

== ENCOUNTER 2024-03-11 09:30 | Outpatient (AMB) | payer OTHER, SELFPAY ==
--- NOTE | 2024-03-11 09:35 | MHC.PC.OV ---
Vital Signs 03/11/24 09:46 03/11/24 10:13 Height 6 ft Weight 223 lb BMI 30.2 BP 97/55 L 94/68 Blood Pressure Location Rt brachial Rt brachial Position Sitting Sitting Respiration 16 Pulse 76 Pulse Source Pulse Oximeter Temp 97.3 F Temp Source Temporal Artery Scan Pulse Oximetry (%) 97 Oxygen Delivery Method Room Air Intake Visit Reasons: DM, HTN, anemia Intake Note: patient here for follow up on DM,HTN and anemia Plant Reliability Engineer Required: No Allergies cat dander Allergy (Intermediate, Verified 03/11/24 09:57) Itchy Eyes Medication List - Last Reconciled 03/11/24 by Linda Howe CNP albuterol sulfate 90 mcg/actuation 1 - 2 puffs inhalation Q4-6H PRN amlodipine 10 mg PO DAILY atorvastatin 80 mg PO DAILY bupropion HCl XL 150 mg PO QAM buspirone 15 mg PO TID 30 days carvedilol (Coreg) 25 mg PO BID 90 days ferrous sulfate 325 mg PO BID 30 days furosemide 20 mg PO DAILY 30 days gabapentin 800 mg PO TID 30 days glipizide ER 5 mg PO DAILY 30 days lisinopril 40 mg PO DAILY 90 days metformin 1,000 mg (2 x 500 mg) PO BID 30 days oxycodone mg PO pantoprazole 40 mg PO BID quetiapine (Seroquel) 25 mg PO BEDTIME 30 days tramadol 50 mg PO BID PRN Tobacco use date assessed: 03/11/24 Fall risk assessment: 1 Fall in past year Last assessed Fall Risk: 03/11/24 Dental Screening Dental Screen Date: 03/11/24 Did you have a dental visit in the last 12 months?: No Did you have a dental problem in the last 6 months where you did not have access to dental care?: No Was dental information given to patient?: No (already gave forms) HPI HPI Comments History of Present Illness Details The patient is a 63-year-old male presenting with gastric small cell carcinoma. The cancer diagnosis was confirmed on February 25 following an endoscopy due to initial complaints of symptoms consistent with an ulcer. The malignancy was noted to be very aggressive. Currently, the patient is scheduled to begin chemotherapy and has undergone brain MRI showing normal results. He is scheduled for a PET scan today. The patient reports dealing with significant upper stomach pain, described as severe heartburn. Alongside these concerns, the patient has a medical history of type 2 diabetes mellitus with an A1c of 5.3% at present, indicating good control with metformin and glipizide therapy. The patient also has hypertension and is on multiple antihypertensive agents, noting recent episodes of leg giving out and dizziness. Additionally, the patient suffers from iron deficiency anemia but has has not been followed by a craft demonstrator. The last bowel movement was a week ago, possibly related to minimal food intake. [facility] Medical History (Updated 03/11/24 @ 10:46 by Linda Howe [facility]) Atherosclerotic cardiovascular disease History of NE (myocardial infarction) Thoracic aortic aneurysm HTN (hypertension) Type 2 diabetes mellitus Nicotine dependence, cigarettes, uncomplicated History of GI bleed History of blood transfusion History of diverticulitis of colon Enlarged prostate Lumbar spondylosis Lumbar radiculopathy Shoulder pain, left Surgical History History of tonsillectomy History of coronary angiogram History of resection of large bowel History of colonoscopy History of rotator cuff surgery Family History Mother Abdominal aneurysm HTN (hypertension) Social History (Updated 01/21/24 @ 13:23 by Nikky Martinez CMA) Household Members: Spouse Housing: Apartment Alcohol intake: former Patient Tobacco Use Status: Former Tobacco user Tobacco use type: Cigarette Cigarette Packs Per Day: 0.5 Cigarettes Per Day: 8 Years Smoked: (onset 11yo, 1ppd x 52yrs, now 1/4-1/2ppd - 40+pyh) e-Cigarette/Vaping Use: Never Used service: No Current occupational status: retired Cognitive needs: No Hearing needs: No Vision needs: No Questionnaire Thrive Questionnaire Date Thrive assessed: 02/02/24 I am a: Patient What is your living situation today?: I have a steady place to live Within the past 12 months, did the food you bought not last and you didn't have the money to get more?: I choose not to answer this question Within the past 12 months, did you worry whether your food would run out before you got money to buy more?: I choose not to answer this question Do you have trouble paying for medicines?: I choose not to answer this question Do you have trouble getting transportation to medical appointments?: I choose not to answer this question Do you have trouble paying your heating and electricity bill?: No Do you have trouble taking care of your child, family member or friend?: I choose not to answer this question Do you have trouble with day-to-day activities such as bathing, preparing meals, shopping, managing finances, etc.?: No Are you currently unemployed and looking for a job?: No Are you interested in more education?: No Please select the resources that you would like help with: None Currently or been in a relationship where the following occur: I choose not to answer THRIVE Score: 0 KASSI-7 AMB Questionnaire KASSI-7 Date KASSI - 7 assessed: 01/04/24 Source: Developed by Drs. Rickey Gordillo, Claudia Lund, Mike Chambers and colleagues, with an educational diane from [employer]. Review of Systems Const Details: Const Denies chills, Denies fatigue, Denies fever(s), Denies headache(s) and Denies weakness ENT Reports dizziness and Denies headache(s) Card Denies chest pain, Denies lightheadedness, Denies dyspnea and Denies other (Palpitations) Resp Denies cough, Denies dyspnea, Denies wheezing and Denies other ( shortness of breath) GI Reports severe upper stomach pain like heartburn; and constipation; denies blood in stools. Denies hematuria and Denies dysuria Musc Denies abnormal gait, Denies myalgias, Denies arthralgias, Denies numbness and Denies tingling Skin/Breast Denies rash, Denies unusual bruising and Denies wounds Neuro Denies abnormal gait, Reports dizziness, Denies headache(s), Denies memory loss, Denies numbness, Denies Sensory deficit (Neuro), Denies tingling and Denies weakness Psych Denies anxiety, Denies depression, Denies memory loss Endo Denies cold intolerance, Denies fatigue, Denies heat intolerance, Denies polydipsia and Denies polyuria Aller/Immun Denies wheezing Physical exam (Primary Care) Tobacco/Smoking Status: Tobacco use Status Tobacco use date assessed 02/22/24 03/11/24 09:37 Patient Tobacco Use Status Current everyday Tobacco 03/11/24 09:37 Tobacco use type Cigarette 03/11/24 09:37 e-Cigarette/Vaping Use Never Used 03/11/24 09:37 Thrive Assessment: Date of Thrive Assessment Date Thrive assessed 02/02/24 03/11/24 09:37 Currently or been in a relationship where the following occur: I choose not to answer Const Other: General: no acute distress and well developed Nutritional Appearance: well nourished Orientation/consciousness: patient oriented x3 HENMT Head: Yes normocephalic and Yes atraumatic Eyes General: appearance normal, both eyes and all related structures Pupils: Equal, round and reactive pupils present EOM: EOMs intact bilaterally Resp Effort & Inspection: normal respiratory effort Auscultation: clear to auscultation bilaterally Cardio Rate: regular rate Rhythm: regular rhythm Heart sounds: S1 normal heart sound present, S2 normal heart sound present, no gallops, no murmurs and no rubs GI Palpation (GI): No Abdominal aortic bruit present, Soft to palpation, tenderness to upper abdomen, No hepatosplenomegaly present and No Rebound tenderness present Auscultation: normal bowel sounds General: Yes no CVA tenderness Back/Spine/Pelvis Back: no CVA tenderness Extrem General: Yes normal to inspection, No edema and No calf tenderness Skin General: warm and dry. Normal skin color. Normal skin turgor Neuro General: patient oriented x3, gait normal and no focal neuro deficit Cranial nerves: Yes Equal, round and reactive pupils present Cognition (Neuro): normal cognition Gait exam (Neuro): Normal gait present Sensory Exam: No Sensory deficit (Neuro) Psych Appearance: grossly normal Affect: normal affect Attitude: cooperative Thought process: Normal thought process present Results AMB Hemoglobin A1c AMB Hemoglobin A1c 5.3 % Last Edit by Leida Allen on 03/11/24 10:05 Coding Level of Care Code Est Pt Level 4 (39587) Complex EM visit Add On G2211 Diagnoses Iron deficiency anemia D50.9 HTN (hypertension) I10 Type 2 diabetes mellitus E11.9 Gastric carcinoma C16.9 Assessment & Plan Assessment & Plan (1) Iron deficiency anemia: Code(s): D50.9 - Iron deficiency anemia, unspecified Category: Medical Plan: He was referred to [facility] hematology but has not been seen. No scheduled appointment noted. He did not get CBC and iron studies blood work done before this visit as planned. He will follow up with his oncologist and motor vehicle assembler as planned and will get blood work done with them. (2) HTN (hypertension): Code(s): I10 - Essential (primary) hypertension Category: Medical Plan: Resting blood pressure today is 94/68. Temporarily suspend furosemide due to low blood pressure readings and symptoms. Continue other antihypertensive medications. Follow up in 1 week for blood pressure re-evaluation. (3) Type 2 diabetes mellitus: Code(s): E11.9 - Type 2 diabetes mellitus without complications Category: Medical Plan: Continue current treatment regimen. ADA diet and routine exercise encouraged. (4) Gastric carcinoma: Comment: Diagnosed on 02/2024 Code(s): C16.9 - Malignant neoplasm of stomach, unspecified Category: Medical Plan: Followed by [facility] gastroenterology and oncology. Currently, the patient is scheduled to begin chemotherapy. Continue current oxycodone regimen for pain relief, particularly attributed to stomach cancer. Plan I discussed with the patient the importance of proceeding with chemotherapy for gastric small cell carcinoma and explained the treatment process briefly, including the upcoming PET scan and possible side effects like fatigue. We reviewed the current management of diabetes, which remains stable, and adjusted his hypertension treatment by suspending furosemide. The patient was informed about the need for follow-up with his oncologist and motor vehicle assembler concerning iron deficiency anemia. The seriousness of his current pain management was acknowledged, and we agreed to continue oxycodone for stomach pain. We also reviewed reasons for dizziness, possibly linked to low blood pressure, and agreed on a plan to monitor blood pressure closely. MOLST, FMLA, and application for disabled parking placard documentation completed per patient's request. Orders: Orders IRON PROFILE Today D50.9 - Iron deficiency anemia, unspecified Ferritin Today D50.9 - Iron deficiency anemia, unspecified AMB Hemoglobin A1c Today Z13.9 - Encounter for screening, unspecified Medications: On Hold furosemide Hold Comment: Doctor's Order 20 mg PO DAILY 30 days 30 tabs 2RF Patient Instructions: - Proceed with PET scan as scheduled for cancer staging. - Begin chemotherapy as advised by oncology. - Continue current medication regimen for diabetes with no changes. - Hold off on taking furosemide until next evaluation. - Monitor and report any significant changes in pain or symptoms. - Consider nutritional support given the report of low intake. - Follow up for a blood pressure check in one week. - Follow up with motor vehicle assembler and oncologist for gastric carcinoma and management of iron deficiency anemia. - Contact medical support if experiencing severe dizziness, worsening pain, or any new symptoms.
[2024-03-11 09:46] VITALS: BP 97/55; PULSE 76; RESP 16; TEMP 36.3; O2SAT 97; BMI 30.2
[2024-03-11 10:13] VITALS: BP 94/68
== END 2024-03-11 10:30 | disposition home or self-care (01) ==
PROVIDERS: PCP Nurse Practitioner Family; Visit Provider Nurse Practitioner Family
DX: D50.9 Iron deficiency anemia, unspecified (principal); I10 Essential (primary) hypertension; E11.9 Type 2 diabetes mellitus without complications; C16.9 Malignant neoplasm of stomach, unspecified; Z13.9 Encounter for screening, unspecified

== ENCOUNTER → 2024-03-11 09:30 | Outpatient (BNVA) | payer OTHER, SELFPAY | PROVIDERS: PCP Nurse Practitioner Family; Visit Provider Nurse Practitioner Family | DX: D50.9 Iron deficiency anemia, unspecified (principal); I10 Essential (primary) hypertension; E11.9 Type 2 diabetes mellitus without complications; C16.9 Malignant neoplasm of stomach, unspecified | CPT/HCPCS: 83036; 99212 ==

== ENCOUNTER 2024-03-29 23:59 | Outpatient (BNV) | payer OTHER, SELFPAY | END 2024-03-30 23:59 | PROVIDERS: PCP Nurse Practitioner Family; Visit Provider Internal Medicine | DX: R79.89 Other specified abnormal findings of blood chemistry (principal); D61.818 Other pancytopenia | CPT/HCPCS: 99223 ==